=== PATIENT | female | born 1960 | race Caucasian/White ===

== ENCOUNTER 2023-02-25 09:39 | Outpatient (OUT) | payer OTHER, SELFPAY ==
--- NOTE | 2023-02-25 10:12 | MM_ITS ---
Patient Name: PREETHI TRIANA MR#: [id number] : 1960 Exam Date: 02/25/2023 Ordering Doctor: DR JA BERNSTEIN . RADIOLOGY REPORT PROCEDURE: MM TOMOSYNTHESIS SCREENING BI COMPARISON: MG MAMM SCREEN 3D PRISCILLA CAD, 12/24/2021. MG MAMM SCREEN 3D PRISCILLA CAD, 12/23/2020. MG MAMM SCREEN PRISCILLA W CAD, 12/20/2019. MG MAMM PRISCILLA SCRN W CAD DIG, 12/02/2005. INDICATIONS: screening Calculator Name NCI Breast Cancer Risk Assessment Tool 5 Year Breast Cancer Risk 1.70% Lifetime Breast Cancer Risk 7.10% Personal Breast Cancer No Personal Ovarian Cancer No Treatments Thyroidectomy Family Cancers Mother with ovarian cancer at age 47. LOCATION: [facility] BREAST COMPOSITION: Heterogeneously dense,which may obscure small masses. FINDINGS: DIAGNOSTIC CATEGORY 2--BENIGN FINDING: RIGHT BREAST: No significant suspicious finding. No significant change has occurred. LEFT BREAST: No significant suspicious finding. Scattered benign-appearing lymph nodes are present. No significant change has occurred. RECOMMENDATIONS: ROUTINE MAMMOGRAM AND CLINICAL EVALUATION IN 12 MONTHS. PLEASE NOTE: A NORMAL MAMMOGRAM DOES NOT EXCLUDE THE POSSIBILITY OF BREAST CANCER. A CLINICALLY SUSPICIOUS PALPABLE LUMP SHOULD BE BIOPSIED. Dictated by: Aung Michaud M.D. on 02/25/2023 at 12:22 Approved by: Aung Michaud M.D. on 02/25/2023 at 12:27
== END 2023-02-25 09:40 | disposition home or self-care (01) ==
LOC: MAMMO 09:42
PROVIDERS: PCP Family Medicine; Visit Provider Family Medicine
DX: Z12.31 Encounter for screening mammogram for malignant neoplasm of breast (principal); Z80.41 Family history of malignant neoplasm of ovary
CPT/HCPCS: 77063; 77067

== ENCOUNTER 2023-08-10 21:14 | Emergency (ER) | payer OTHER, SELFPAY ==
[2023-08-10] VITALS (18 sets, daily range): BP systolic 156–180; BP diastolic 100–108; PULSE 82–112; TEMP 37; O2SAT 98–99; BMI 37.0
--- OUTSIDE RECORDS SUMMARY | 2023-08-10 21:23 | XMS_ITS | CCD ---
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 Role Phone Sonal Miguel Unavailable Kia Marie Unavailable DAY, DR PERES Primary Care Unavailable MARKER, DR MANCINI Attending Unavailable MARKER, DR MANCINI Consulting Unavailable MARKER, DR MANCINI Admitting Unavailable HEMEYER, DR PERES Consulting Unavailable HEMEYER, DR PERES Primary Care Unavailable HEMEYER, DR PERES Admitting Unavailable HEMEYER, DR PERES Attending Unavailable WHITTAKER, DR MICHAEL Chong Consulting Unavailable None, Physician Primary Care Provider KLEVER Allred Attending Provider Rene Allred Attending Unavailable None Primary Care Unavailable Castro Bernstein MD Primary Care Provider DO Rolf Redding Attending Provider Rolf Redding Admitting Unavailable Rolf Redding Attending Unavailable CASTRO BERNSTEIN Attending Unavailable CASTRO BERNSTEIN Attending Unavailable ROLF REDDING Attending Unavailable CASTRO BERNSTEIN Referring Unavailable ROLF REDDING Attending Unavailable Allergies Allergy Classification Reported Allergen(s) Allergy Type Date of Onset Reaction(s) Facility (6 sources) Sulfamethoxazole / Trimethoprim Drug Allergy 10-06-19 17 Unknown [employer] Other (7 sources) Vancomycin Drug Allergy 10-06-19 17 hives [employer] Other (1 source) Sulfamethoxazole / Trimethoprim Drug Allergy 10-02-19 22 [facility] Repository (1 source) Sulfonamides (Antibiotic) Drug allergy (disorder) 01-04-20 15 [facility] (1 source) Vancomycin Drug Allergy 01-04-20 15 [facility] (3 sources) buPROPion Drug Allergy 07-24-19 22 [facility] (3 sources) FLUoxetine Drug Allergy 07-24-19 22 [facility] (4 sources) Latex Allergy to substance 05-17-19 21 Redness of Skin,rash itching [facility] (3 sources) Sulfonamides (Antibiotic) Drug Allergy 07-24-19 22 [facility] (3 sources) traMADol Drug Allergy 07-24-19 22 [facility] (3 sources) venlafaxine Drug Allergy 07-24-19 22 [facility] (3 sources) Wound Dressing Adhesive Drug Allergy 10-06-19 17 Rash [facility] (1 source) Sulfamethoxazole Drug Allergy 04-13-19 23 Itching, bad stomach pain [facility] (1 source) Trimethoprim Drug Allergy 04-13-19 23 Itching, bad stomach pain [facility] (1 source) bandaids Allergy to substance 05-17-19 21 Itching, redness of skin [facility] Medications Current Medications Medication Drug Class(es) Dates Sig (Normalized) Sig (Original) [id number] 200 actuat albuterol 0.09 mg/actuat metered dose inhaler (1 source) beta2-Adrenergic Agonist Start: 04-13-2022 take 2 puff(s) by inhalation four times daily as needed Albuterol Sulfate HFA 108 (90 Base) MCG/ACT 2 puffs Inhalation 4 times a day prn Apr, Active amoxicillin 875 mg / clavulanate 125 mg oral tablet (1 source) Penicillin-class Antibacterial Start: 04-13-2022 take 1 tablet by mouth every twelve hours Amoxicillin-Pot Clavulanate 875-125 MG 1 tablet Orally every 12 hrs for 10 day(s) Apr, Active azelastine hydrochloride 0.137 mg/actuat metered dose nasal spray (3 sources) Histamine-1 Receptor Antagonist Start: 02-24-2023 End: 08-23-2023 take 1 spray(s) nasal route in the morning azelastine (Astelin) 0.1 % nasal spray Indications: Non-seasonal allergic rhinitis, unspecified trigger Administer 1 spray into each nostril in the morning and 1 spray before bedtime. Use in each nostril as directed. 90 mL 1 02/24/2023 08/23/2023 Active benzonatate 100 mg oral capsule (1 source) Non-narcotic Antitussive Start: 04-13-2022 take 1 capsule by mouth every eight hours Tessalon Perles 100 MG 1 capsule as needed Orally Three times a day for 10 day(s) Apr, Active cholecalciferol 0.05 mg oral tablet (1 source) Vitamin D Start: 05-16-2020 take 1 tablet by mouth every week Cholecalciferol (Vitamin D3) (Vitamin D3) 50 mcg (2,000 unit) Tablet Active 1250 MCG PO every week May 16, 2020 12:00am ergocalciferol 1.25 mg oral capsule (3 sources) Provitamin D2 Compound Start: 12-22-2022 take 1 capsule by mouth every other week Vitamin D, Ergocalciferol, 32878 units capsule TAKE ONE CAPSULE BY MOUTH EVERY OTHER WEEK 0 12/22/2022 Active hydrOXYzine hydrochloride 10 mg oral tablet (3 sources) Antihistamine Start: 10-23-2022 take 1-2 tablets by mouth every eight hours at bedtime as needed hydrOXYzine HCl (Atarax) 10 MG tablet TAKE 1 TO 2 TABLETS BY MOUTH AT BEDTIME NEEDED FOR ITCHING, can TAKE EVERY 8 HOURS, FOR 30 DAYS 0 10/23/2022 Active levoFLOXacin 750 mg oral tablet (1 source) Quinolone Antimicrobial Start: 04-08-2023 End: 04-18-2023 take 1 tablet by mouth in the morning levoFLOXacin (Levaquin) 750 MG tablet Indications: Pneumonia of left lower lobe due to infectious organism Take 1 tablet (750 mg) by mouth in the morning for 10 days. 10 tablet 0 04/08/2023 04/18/2023 Active levothyroxine sodium 0.2 mg oral capsule (12 sources) l-Thyroxine Start: 11-07-2021 take 1 capsule by mouth in the morning levothyroxine (Tirosint) 200 MCG capsule Take 200 mcg by mouth in the morning. Take on an empty stomach.. 0 11/07/2021 Active Start: 05-16-2020 take 300 ug by mouth once daily in the morning Levothyroxine Active 300 MCG PO Every morning May 16, 2020 12:00am Start: 02-02-2018 End: 05-16-2020 take 200 ug by mouth once daily Levothyroxine Disconti nued 200 MCG PO Daily February 02, 2018 1:00am May 16, 2020 7:11am Start: 02-02-2018 End: 05-16-2020 take 50 ug by mouth once daily Levothyroxine Discontin ued 50 MCG PO Daily February 02, 2018 1:00am May 16, 2020 7:11am take 1 tablet by jay th once daily in the morning Levothyroxine Sodium 300 MCG 1 tablet in the morning on an empty stomach Orally Once a day Active loratadine 10 mg oral tablet (7 sources) Start: 10-25-2020 take 10 mg by mouth once daily in the morning Loratadine Active 10 MG PO Every morning October 25, 2020 12:00am midodrine hydrochloride 10 mg oral tablet (4 sources) alpha-Adrenergi c Agonist Start: 02-24-2023 End: 08-23-2023 take 1 tablet by mouth in the morning midodrine (Proamatine) 10 MG tablet Indications: POTS (postural orthostatic tachycardia syndrome) Take 1 tablet (10 mg) by mouth in the morning and 1 tablet (10 mg) before bedtime. 180 tablet 1 02/24/2023 08/23/2023 Active take 1 tablet by jay th every twelve hours Midodrine HCl 10 MG 1 tablet Orally Twic e a day Active Multivitamin preparation (1 source) Start: 02-02-2018 take 1 tablet by mouth once daily Multivitamin Active 1 TAB PO Daily February 02, 2018 1:00am ofloxacin 3 mg/ml ophthalmic solution (1 source) Quinolone Antimicrobial Start: 12-21-2020 take 1 drop(s) into the eye(s) four times daily Ofloxacin 0.3 % 1 drop into affected eye Ophthalmic Four times a day for 7 day(s) Nov, Active omeprazole 20 mg delayed release oral tablet (7 sources) Proton Pump Inhibitor Start: 10-25-2020 take 20 mg by mouth once daily in the morning Omeprazole Active 20 MG PO Every morning October 25, 2020 12:00am take 1 capsule by mouth once agnieszka ly Omeprazole 20 MG 1 capsule 30 minutes before morning meal Orally Once a day Active predniSONE 20 mg oral tablet (1 source) Start: 04-13-2022 take 1 tablet by mouth every twelve hours predniSONE 20 MG 1 tablet Orally 2 times a day for 5 day(s) Apr, Active Sodium Chloride (1 source) Start: 04-08-2023 End: 04-18-2023 sodium chloride 3% nebulizer solution Indications: Pneumonia of left lower lobe due to infectious organism Take 3 mL by nebulization 4 (four) times a day as needed for cough for up to 10 days 150 mL 0 04/08/2023 04/18/2023 Active valACYclovir 500 mg oral tablet (4 sources) Herpesvirus Nucleoside Analog DNA Polymerase Inhibitor, Herpes Simplex Virus Nucleoside Analog DNA Polymerase Inhibitor, Herpes Zoster Virus Nucleoside Analog DNA Polymerase Inhibitor Start: 02-02-2018 End: 08-23-2023 take 1 tablet by mouth in the morning valACYclovir (Valtrex) 500 MG tablet Indications: Herpetic vulvovaginitis Take 1 tablet (500 mg) by mouth in the morning. 90 tablet 1 02/24/2023 08/23/2023 Active Valcyclovir-500 mg (3 sources) Valcyclovir-500 mg Active Vitamin D3 (3 sources) Vitamin D3 Activ e Completed/Discontinued Medications Medication Drug Class(es) Dates Sig (Normalized) Sig (Original) ferrous sulfate 325 mg oral tablet (1 source) Start: 02-02-2018 End: 05-16-2020 take 1 tablet by mouth once daily Ferrous Sulfate (Iron (Ferrous Sulfate)) 325 mg (65 mg iron) Tablet Discontinued 325 MG PO Daily February 02, 2018 1:00am May 16, 2020 7:10am fexofenadine hydrochloride 180 mg oral tablet (1 source) Histamine-1 Receptor Antagonist Start: 02-02-2018 End: 10-25-2020 take 1 tablet by mouth once daily Fexofenadine (Alejandra Allergy) 180 mg Tablet Discontinued 180 MG PO Daily February 02, 2018 1:00am October 25, 2020 2:19pm traMADol hydrochloride 50 mg oral tablet (1 source) Opioid Agonist Start: 02-07-2018 End: 05-16-2020 take 0.5-1 tablets by mouth every six hours as needed for pain Tramadol (Ultram) 50 mg tablet Discontinued 50 MG PO Q6H 45 7 February 07, 2018 1:00am May 16, 2020 7:12am 1/2 - 1 tab po q 6 hours prn pain Wrist Splint/Right XL - (2 sources) Start: 05-18-2021 Wrist Splint/Right XL - as directed right wrist sprain Apr, Not-Taking Start: 05-18-2021 Wrist Splint/R ight XL - as directed right wrist sprain Apr, Active Problems Active Problems Problem Classification Problem Date Documented Date Episodic/Chronic Chronic obstructive pulmonary disease and bronchiectasis (1 source) Bronchitis, not specified as acute or chronic Episodic Complications of surgical procedures or medical care (4 sources) Postprocedural hypothyroidism; Translations: [Postoperative hypothyroidism] Onset: 12-03-2014 12-21-2022 Chronic Diverticulosis and diverticulitis (3 sources) Diverticulosis of colon; Translations: [Diverticulosis of large intestine without perforation or abscess without bleeding] Onset: 06-25-2021 12-21-2022 Chronic Malaise and fatigue (3 sources) Chronic fatigue syndrome; Translations: [Chronic fatigue syndrome] Onset: 11-12-2017 12-21-2022 Chronic Nutritional deficiencies (3 sources) Vitamin D deficiency; Translations: [Vitamin D deficiency, unspecified] Onset: 02-27-2020 12-21-2022 Chronic Other aftercare (1 source) 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; Translations: [OTH OFFICE PROFESSIONALS CURRENT DRUG THERAPY] Onset: 10-03-2021 Episodic Other connective tissue disease (1 source) Fibromyalgia; Translations: [FIBROMYALGIA] Onset: 10-03-2021 Episodic Other nutritional; endocrine; and metabolic disorders (4 sources) Morbid obesity; Translations: [Morbid (severe) obesity due to excess calories] Onset: 04-15-2015 12-21-2022 Chronic Other nutritional; endocrine; and metabolic disorders (1 source) Body mass index 30+ - obesity; Translations: [Body mass index (BMI) 36.0-36.9, adult] 04-08-2023 Chronic Other screening for suspected conditions (not mental disorders or infectious disease) (4 sources) Encounter for screening mammogram for malignant neoplasm of breast; Translations: [ENC SCR MAMMO MALIG NEOPLASM BREAST] Onset: 12-24-2021 Episodic Other upper respiratory infections (1 source) Acute sinusitis, unspecified Episodic Pneumonia (except that caused by tuberculosis or sexually transmitted disease) (1 source) Infective pneumonia; Translations: [Pneumonia, unspecified organism] 04-08-2023 Episodic Residual codes; unclassified (1 source) Sleep apnea, unspecified; Translations: [SLEEP APNEA UNSPECIFIED] Onset: 10-03-2021 Chronic Residual codes; unclassified (3 sources) Obstructive sleep apnea syndrome; Translations: [Obstructive sleep apnea (adult) (pediatric)] Onset: 12-03-2014 12-21-2022 Chronic Residual codes; unclassified (1 source) Family history of malignant neoplasm of ovary; Translations: [FAM HX MALIGNANT NEOPLASM OVARY] Onset: 12-28-2021 Episodic Residual codes; unclassified (1 source) Acquired absence of both cervix and uterus; Translations: [ACQUIRED ABSENCE BOTH CERVIX AND UTERUS] Onset: 10-03-2021 Episodic Residual codes; unclassified (1 source) Acquired absence of other genital organ(s); Translations: [ACQUIRED ABSENCE OTH GENITAL ORGANS] Onset: 10-03-2021 Episodic Residual codes; unclassified (1 source) Acquired absence of ovaries, bilateral; Translations: [ACQUIRED ABSENCE OVARIES BILATERAL] Onset: 10-03-2021 Episodic Residual codes; unclassified (1 source) Pain, unspecified Episodic Varicose veins of lower extremity (11 sources) Pain co-occurrent and due to varicose veins of bilateral legs; Translations: [Varicose veins of bilateral lower extremities with pain] Onset: 04-06-2017 Episodic Viral infection (3 sources) Herpetic vulvovaginitis; Translations: [Herpesviral vulvovaginitis] Onset: 08-02-2015 12-21-2022 Chronic Past or Other Problems Problem Classification Problem Date Documented Date Episodic/Chronic Inflammation; infection of eye (except that caused by tuberculosis or sexually transmitteddisease) (1 source) Unspecified acute conjunctivitis, left eye Onset: 12-21-2020 Resolved: 12-21-2020 Episodic Other connective tissue disease (1 source) Pain in left hand Onset: 05-18-2021 Resolved: 05-18-2021 Episodic Other diseases of veins and lymphatics (6 sources) Peripheral venous insufficiency; Translations: [Venous insufficiency (chronic) (peripheral)] Onset: 12-28-2019 12-21-2022 Episodic Other diseases of veins and lymphatics (3 sources) Venous stasis; Translations: [Other specified disorders of veins] Onset: 12-14-2014 12-21-2022 Episodic Other non-traumatic joint disorders (1 source) Pain in right wrist Onset: 05-18-2021 Resolved: 05-18-2021 Episodic Sprains and strains (2 sources) Unspecified sprain of right wrist, initial encounter; Translations: [Sprain of unspecified part of left wrist and hand, initial encounter] Onset: 05-18-2021 Resolved: 05-18-2021 Episodic Thyroid disorders (3 sources) Sick-euthyroid syndrome; Translations: [Sick-euthyroid syndrome] Onset: 12-14-2014 12-21-2022 Episodic Results Test Name Value Interpretation Reference Range Facility [facility] 06-24-2023 L Specimen: [id number] Received: 06/24/23 Status: REY Marte Num: [id number] Spec Type: Surgical Subm Dr: Rolf Redding DO Tissues: A Gastric Biopsy (GASTRIC ANTRUM) Procedures: HE/2, Gross/Micro L4 Age/ Patient Sex Location Account Attending Physician Preethi Gilliam 62/F ОЛЬГА [id number] Rolf Redding DO SPEC NUM: [id number] RECD: 06/24/23 STATUS: REY MARTE NUM: [id number] JESSIE: 06/24/23- SUBM DR: Rolf Redding DO ENTERED: 06/24/[address] [facility] [address]: Antonio [facility] [place] SPEC TYPE: Surgical DEPT: S ORDERED: HE/2, Gross/Micro L4 ORDERED: HE/2, Gross/Micro L4 Pathological Diagnosis Gastric antrum biopsy: -Antral mucosa with moderate chronic reactive and/or congestive gastropathy, including mildly associated peptic congestions in 2 fragments, otherwise without acute inflammation, active erosion, glandular dysplasia, or significant stromal chronic inflammation observed -Also no other specific features of Helicobacter infection per routine H E morphological assessment Gross Description Received in formalin labeled with the patient's name and gastric antrum BX are 3 montelongo mucosal tissue fragments measuring 0.3 x 0.2 x 0.1 cm to 0.2 x 0.1 x 0.1 cm, entirely submitted in A1. Clinical history: Heartburn, anemia, change in bowel habit TW CPT Codes 44124 Specimen: [id number] Received: 06/24/23 Status: REY Estuardo Num: [id number] Spec Type: Surgical Subm Dr: Rolf Redding DO Tissues: A Gastric Biopsy (GASTRIC ANTRUM) Procedures: Nadir MURDOCK/Mansi L4 Patient: Preethi Gilliam [id number] (Continued) Signed (signature on file) Zora Sal MD 06/26/23 0229 Normal [facility] Quick Fluon 04-13-2022 FLUAV Ab CF (S) [Titer] Negative [employer] Other Quick Flu [employer] Other MG MAMM SCREEN 3D PRISCILLA CADon 12-24-2021 MG MAMM SCREEN 3D PRISCILLA CAD Patient: PREETHI GILLIAM Exam Date: 12/24/2021 : 1960 Gender:F Ordering : DR CASTRO BERNSTEIN . Admission #: [id number] Family : Order #: [id number] CLICK HERE TO VIEW EXAM RADIOLOGY REPORT PROCEDURE: MAMMOGRAM SCREENING 3D BILATERAL CAD COMPARISON: MG MAMM SCREEN PRISCILLA W CAD, 12/20/2019. MG MAMM SCREEN 3D PRISCILLA CAD, 12/23/2020. INDICATIONS: Screening mammography Calculator Name NCI Breast Cancer Risk Assessment Tool 5 Year Breast Cancer Risk 1.30% Lifetime Breast Cancer Risk 5.90% Personal Breast Cancer No Personal Ovarian Cancer No Treatments Thyroidectomy Family Cancers Mother with ovarian cancer at age 47. LOCATION: [facility] BREAST COMPOSITION: Heterogeneously dense,which may obscure small masses. FINDINGS: DIAGNOSTIC CATEGORY 2--BENIGN FINDING. NO CHANGE FROM COMPARISON. Scattered benign-appearing nodules are present. Scattered benign-appearing calcifications are present. Scattered benign-appearing lymph nodes are present. RIGHT BREAST: No significant suspicious finding. LEFT BREAST: No significant suspicious finding. RECOMMENDATIONS: ROUTINE MAMMOGRAM AND CLINICAL EVALUATION IN 12 MONTHS. PLEASE NOTE: A NORMAL MAMMOGRAM DOES NOT EXCLUDE THE POSSIBILITY OF BREAST CANCER. A CLINICALLY SUSPICIOUS PALPABLE LUMP SHOULD BE BIOPSIED. Dictated by: Michael Messer MD on 12/24/2021 at 08:05 Approved by: Michael Messer MD on 12/24/2021 at 08:06 Normal [facility] XR wrist RT min 3V*on 2021 XR wrist RT min 3V* [facility] [employer] Other XR wrist RT min 3V* [facility] [place] [employer] Other XR wrist RT min 3V* [address] [place] [address] [employer] Other XR wrist RT min 3V* [place] [address] [employer] Other XR wrist RT min 3V* XRay Report [employer] Other XR wrist RT min 3V* Signed [employer] Other XR wrist RT min 3V* Patient: Preethi Gilliam MR#: [id number] [employer] Other XR wrist RT min 3V* 9 [employer] Other XR wrist RT min 3V* : 1960 Acct:[id number] [employer] Other XR wrist RT min 3V* Age/Sex: 60 / F ADM Date: 05/18/21 [employer] Other XR wrist RT min 3V* Loc: [facility] Room: Type: [facility] [employer] Other XR wrist RT min 3V* Attending Dr: Kia LOPEZ [employer] Other XR wrist RT min 3V* Ordering Provider: JESSICA Campbell [employer] Other XR wrist RT min 3V* Date of Service: 05/18/21 [employer] Other XR wrist RT min 3V* XR/XR wrist RT min 3V*: PAIN AFTER FALL [employer] Other XR wrist RT min 3V* ([id number]) XR/XR hand LT min 3V*: PAIN AFTER FALL [employer] Other XR wrist RT min 3V* Copies to: JESSICA Campbell [employer] Other XR wrist RT min 3V* XR hand LT min 3V*, XR wrist RT min 3V* 05/18/2021 11:56 AM [employer] Other XR wrist RT min 3V* SIGNS AND SYMPTOMS: Fall with pain over the right wrist which is greatest over the ulnar aspect and [employer] Other XR wrist RT min 3V* within the left hand greatest along the fourth and fifth metacarpals. [employer] Other XR wrist RT min 3V* PROTOCOL: Frontal, lateral, and oblique radial graphs of the left hand and right wrist [employer] Other XR wrist RT min 3V* COMPARISON: None [employer] Other XR wrist RT min 3V* FINDINGS: [employer] Other XR wrist RT min 3V* Left hand: [employer] Other XR wrist RT min 3V* There is no evidence of fracture or dislocation. Significant degenerative changes are noted in the [employer] Other XR wrist RT min 3V* distal interphalangeal joint of the fifth digit. There is mild narrowing of the first [employer] Other XR wrist RT min 3V* metacarpophalangeal junction. The joint spaces are preserved otherwise. No significant soft tissue [employer] Other XR wrist RT min 3V* swelling. [employer] Other XR wrist RT min 3V* Right wrist: [employer] Other XR wrist RT min 3V* The radiocarpal joint and carpal rows are preserved. There is mild soft tissue swelling over the [employer] Other XR wrist RT min 3V* dorsum of the wrist. There is no evidence of acute displaced fracture. No dislocation or [employer] Other XR wrist RT min 3V* subluxation. [employer] Other XR wrist RT min 3V* XR/XR hand LT min 3V* [employer] Other XR wrist RT min 3V* IMPRESSION: [employer] Other XR wrist RT min 3V* No evidence of acute displaced fracture. [employer] Other XR wrist RT min 3V* Degenerative changes are noted, greatest in the fifth distal interphalangeal joints. [employer] Other XR wrist RT min 3V* No acute displaced fracture. No subluxation or dislocation. [employer] Other XR wrist RT min 3V* There is soft tissue swelling over the dorsum of the right wrist. [employer] Other XR wrist RT min 3V* Impression dictated by: Earnest King M.D.05/18/2021 11:58 AM [employer] Other XR wrist RT min 3V* Dictation Location: [place] [address] [employer] Other XR wrist RT min 3V* Transcribed By: JILL 05/18/21 [facility] [employer] Other XR wrist RT min 3V* Dictated By: Earnest King II, MD 05/18/21 [facility] [employer] Other XR wrist RT min 3V* Signed By: [employer] Other XR wrist RT min 3V* 05/18/21 [facility] [employer] Other FREE T4on 07-20-2019 Free T4 [Mass/Vol] 0.76 ng/dL Normal 0.61-1.60 [facility] Comment on above: Result Comment: Perf ormed at [facility] [address] [address] Performed By: #### 1 9403, 11064, 16453 #### [facility] Unless Otherwise Noted [address] [address] / COLA #[id number]/CLIA # [id number] THYROGLOBULIN QUANTITATIVE A ND ANTIBODYon 07-20-2019 ANTI-THYROGLOBULIN AB <1 Normal <4.0 [facility] Comment on above: Result Comment: [facility] ormed at [facility] [facility] [address] Performed By: #### 1 9863, 93755, 50792 #### [facility] Unless Otherwise Noted [address] [address] / COLA #4724/CLIA # [id number] THYROGLOBULIN <0.1 Normal 0-35 End[facility] Comment on above: Result Comment: Quantitation of Thyroglobulin may be unreliable due to the presence of Anti-Thyroglobulin antibodies. The results cannot be interpreted as absolute evidence for the presence or absence of malignant disease. Pathology [employer] [address] [place] [address] CLIA No. [id number] CAP Accreditation No. [id number] Computerized Table Cutter: Reg Oliver M.D. Performed By: #### 1 3896, 03904, 59353 #### [facility] Unless Otherwise Noted [address] [address] / COLA #4724/CLIA # [id number] TSHon 07-20-2019 TSH Qn 35.00 uIU/mL High 0.49-4.67 [facility] Comment on above: Result Comment: Perf ormed at [facility] [facility] [address] Performed By: #### 1 2940, 02680, 38437 #### [facility] Unless Otherwise Noted [address] [address] / COLA #4724/CLIA # [id number] Vital Signs Date Time Vital Sign Value Performing Clinician Facility 04-08-2023 10:20-0500 Body height 172.7 cm Castro Bernstein MD Work Phone: [facility] 04-08-2023 10:20-0500 Body mass index (BMI) [Ratio] 36.19 kg/m2 Castro Bernstein MD Work Phone: [facility] [place] 04-08-2023 10:20-0500 Body weight 107.96 kg Castro Bernstein MD Work Phone: [facility] 04-13-2022 10:35-0500 Body height 172.72 cm Kia Cynthia Other [employer] Other 04-13-2022 10:35-0500 Body mass index (BMI) [Ratio] 34.82 kg/m2 Kia Cynthia Other [employer] Other 04-13-2022 10:35-0500 Body temperature 97.8 [degF] Kia Cynthia Other [employer] Other 04-13-2022 10:35-0500 Body weight 103.87 kg Kia Cynthia Other [employer] Other 04-13-2022 10:35-0500 Diastolic blood pressure 63 mm[Hg] Kia Cynthia Other [employer] Other 04-13-2022 10:35-0500 Respiratory rate 18 /min Kia Cynthia Other [employer] Other 04-13-2022 10:35-0500 SaO2% (BldA) [Mass fraction] 96 % Kia Cynthai Other [employer] Other 04-13-2022 10:35-0500 Systolic blood pressure 99 mm[Hg] Ika Cynthia Other [employer] Other 05-18-2021 12:20-0400 Body height 172.72 cm Kia Cynthia Other [employer] Other 05-18-2021 12:20-0400 Body mass index (BMI) [Ratio] 34.75 kg/m2 Kia Marie Other [employer] Other 05-18-2021 12:20-0400 Body temperature 98.1 [degF] Kia Crenshawmond Other [employer] Other 05-18-2021 12:20-0400 Body weight 103.69 kg Kia Marie Other [employer] Other 05-18-2021 12:20-0400 Diastolic blood pressure 79 mm[Hg] Kia Marie Other [employer] Other 05-18-2021 12:20-0400 Respiratory rate 18 /min Kia Marie Other [employer] Other 05-18-2021 12:20-0400 SaO2% (BldA) [Mass fraction] 99 % Kia Marie Other [employer] Other 05-18-2021 12:20-0400 Systolic blood pressure 133 mm[Hg] Kia Crenshawmond Other [employer] Other 12-21-2020 12:40-0400 Body height 172.72 cm Sonal Ginty Other [employer] Other 12-21-2020 12:40-0400 Body mass index (BMI) [Ratio] 34.75 kg/m2 Sonal Ginty Other [employer] Other 12-21-2020 12:40-0400 Body temperature 97.7 [degF] Sonal Ginty Other [employer] Other 12-21-2020 12:40-0400 Body weight 103.69 kg Sonal Ginty Other [employer] Other 12-21-2020 12:40-0400 Diastolic blood pressure 76 mm[Hg] Sonal Ginty Other [employer] Other 12-21-2020 12:40-0400 Respiratory rate 18 /min Sonal Ginty Other [employer] Other 12-21-2020 12:40-0400 SaO2% (BldA) [Mass fraction] 98 % Sonal Ginty Other [employer] Other 12-21-2020 12:40-0400 Systolic blood pressure 118 mm[Hg] Sonal Ginty Other [employer] Other Encounters Encounter Date Encounter Type Care Provider Facility Start: 07-06-2023 End: 07-06-2023 ambulatory ROLF REDDING Not Available Start: 06-24-2023 End: 06-24-2023 ambulatory Rolf Redding [facility] Work Phone: Start: 06-24-2023 End: 06-24-2023 Departed Referred DO Rolf Redding Work Phone: [facility] [place] Work Phone: Start: 06-10-2023 End: 06-10-2023 ambulatory ROLF REDDING Not Available Start: 04-08-2023 Bamboo flowsheet Castro cisneros MD Work Phone: [facility] Start: 04-08-2023 Bamboo flowsheet Castro cisneros MD Work Phone: [facility] Start: 04-08-2023 End: 04-08-2023 ambulatory CASTRO BERNSTEIN Not Available Start: 04-08-2023 End: 04-08-2023 Office outpatient visit 15 minutes Castro Bernstein MD Work Phone: [facility] Comment on above: Pneumonia of left lo wer lobe due to infectious organism; Morbid obesity (CMS/HCC); BMI 36.0-36.9,adult Start: 04-07-2023 Chart abstracting Castro phillips MD Work Phone: [facility] Start: 02-24-2023 End: 02-24-2023 ambulatory CASTRO BERNSTEIN Not Available Start: 10-12-2022 End: 10-12-2022 ambulatory Rene Allred Facility:[facility] Start: 10-12-2022 End: 10-12-2022 ambulatory Physician None Work Phone: [facility] Work Phone: Start: 04-13-2022 End: 04-13-2022 ambulatory Kia Marie Other [employer] Other Start: 04-13-2022 Office outpatient vi sit 15 minutes Kia Cynthia [facility] Start: 12-24-2021 End: 12-25-[address] CASTRO BERNSTEIN Facility:[facility] Start: 10-02-2021 End: 10-02-[address] CASTRO BERNSTEIN Facility:[facility] Start: 05-18-2021 End: 05-18-2021 ambulatory Kianikita Marie Other [employer] Other Start: 05-18-2021 Office outpatient vi sit 15 minutes Kia Cynthia [facility] Start: 12-21-2020 End: 12-21-2020 ambulatory Sonal Ginty Other [employer] Other Start: 12-21-2020 Office outpatient vi sit 15 minutes Sonal Ginty [facility] Procedures Date Procedure Procedure Detail Performing Clinician Start: 02-25-2023 Mammography Castro phillips MD Work Phone: Start: 01-07-2015 Colonoscopy Castro phillips MD Work Phone: Plan of Treatment Date Care Activity Detail Author Start: 01-07-2025 Screening for malignant neoplasm of colon [facility] Start: 02-26-2024 Screening for malign ant neoplasm of breast Mammogram [facility] Start: 04-08-2023 End: 04-08-2023 Patient encounter procedure [facility] Comment on above: Arrived Start: 1960 Screening for malignant neoplasm of colon [facility] Immunizations Immunization Date Immunization Notes Care Provider Fa [facility] 12-03-2022 Influenza, injectabl e, Madin [place] Canine Kidney, preservative free, quadrivalent Castro Bernstein MD Work Phone: [facility] 11-24-2021 Influenza, injectabl e, Madin [place] Canine Kidney, preservative free, quadrivalent Castro Bernstein MD Work Phone: [facility] 2020 influenza, injectabl e, quadrivalent, preservative free Castro Bernstein MD Work Phone: [facility] 06-20-2020 COVID-19 mRNA-1273 (Moderna) DO Rolf Redding Work Phone: [facility] 05-23-2020 COVID-19 mRNA-1273 (Moderna) [facility] Work Phone: [facility] 11-15-2019 Influenza, injectabl e, Madin [place] Canine Kidney, preservative free, quadrivalent Castro Bernstein MD Work Phone: [facility] 12-03-2006 hepatitis B vaccine, adult dosage Castro Bernstein MD Work Phone: [facility] 07-30-2006 hepatitis B vaccine, adult dosage Castro Bernstein MD Work Phone: [facility] 06-01-2006 hepatitis B vaccine, adult dosage Castro Bernstein MD Work Phone: [facility] Payers Date Payer Category Payer Unknown [id number] 2022 Private Health Insurance [facility] [id number] 2022-Present [address] [address] [place] [address] [id number] 2022 Private Health Insurance [id number] 1960 Unknown [id number] 1959 Unknown [id number] 1959 Unknown [id number] [id number] 1959 Unknown [id number] [id number] 1959 Unknown [id number] [id number] 1959 Unknown [id number] 1960 Private Health Insurance [id number] Private Health Insurance [id number] Self-pay Unknown [facility] [id number] Unknown [id number] Social History Date Type Detail Facility Start: 02-24-2023 End: 04-08-2023 Sex Assigned At [facility] Other Start: 1960 Sex Assigned At Female [facility] Start: 10-31-2020 End: 02-23-2023 Tobacco smoking status NHIS Never smoked tobacco [facility] Start: 02-23-2023 Tobacco use and exposure Smokeless tobacco non-user [facility] Start: 04-07-2023 End: 04-08-2023 Alcohol intake Ex-drinker (finding) [facility] Start: 02-24-2023 End: 04-08-2023 History of Social function [facility] Start: 04-07-2023 Alcohol Comment Caffeine intak e : 2-3 cups pr day [facility] Start: 1960 Sex Assigned At Not on file [facility] Start: 05-13-2022 Gender identity Identifies as female gender (finding) [facility] History of Present illness Narrative 04-08-2023 Castro Bernstein MD - 04/08/2023 10:30 AM EST Note Date & Type Note Facility 04-08-2023 History of Presen t illness Narrative Patient ID: Preethi Gilliam is a 62 y.o. female who presents for: Upper Respiratory Infection Patient complains of symptoms of a URI. Symptoms include congestion, facial pain, nasal congestion, and non productive cough. Onset of symptoms was 7 days ago, and has been gradually worsening since that time. Treatment to date: none. Review of Systems Constitutional: Negative for chills and fever. HENT: Positive for congestion, sinus pressure and sinus pain. Negative for ear pain and sore throat. Respiratory: Positive for cough. Negative for shortness of breath and wheezing. Neurological: Positive for headaches. Negative for light-headedness. Objective In general the patient is pleasant and in no acute distress. Bilateral ears, canals are within normal limits. TMs are transparent and somewhat retracted. No fluid layer. Bilateral nares demonstrate inflamed mucosa. Oropharynx has moist mucosa there is no specific evidence of thrush. There is mild erythema of the pharynx. Shoddy bilateral anterior cervical adenopathy. No signs of respiratory distress. Patient is speaking full sentences. There are asymmetrical breath sounds With a decrease in the left lower lung field. No rhonchi or rales are appreciated. No wheezes. Decreased percussion note in the left lower lung field Skin is warm and dry Visit Vitals Ht 5' 8 Wt 238 lb BMI 36.19 kg/m OB Status Hysterectomy Smoking Status Never BSA 2.28 m Allergies Allergen Reactions Sulfamethoxazole-Trimethoprim Other Reaction(s): GI Disturbance, Unknown Vancomycin Other Reaction(s): Other (See Comments), Red Women Syndrome RED MAN SYNDROME Bupropion Other Reaction(s): anger Wound Dressing Adhesive Rash Fluoxetine Other Reaction(s): felt bug eyed Latex Other Reaction(s): Unknown Sulfa Antibiotics Other Reaction(s): Unknown Tramadol Other Reaction(s): anaphylaxis Venlafaxine Other Reaction(s): nausea Current Outpatient Medications Medication Instructions azelastine (Astelin) 0.1 % nasal spray 1 spray, Each Nostril, 2 times daily, Use in each nostril as directed hydrOXYzine HCl (Atarax) 10 MG tablet TAKE 1 TO 2 TABLETS BY MOUTH AT BEDTIME NEEDED FOR ITCHING, can TAKE EVERY 8 HOURS, FOR 30 DAYS levoFLOXacin (LEVAQUIN) 750 mg, Oral, Daily levothyroxine (Synthroid, Levoxyl) 50 MCG tablet 1 tablet, Oral, Daily before breakfast, For total 250McG levothyroxine (TIROSINT) 200 mcg, Oral, Every morning, Take on an empty stomach. loratadine (CLARITIN) 10 mg, Oral, Daily RT midodrine (PROAMATINE) 10 mg, Oral, 2 times daily omeprazole OTC (PRILOSEC OTC) 20 mg, Oral, Daily before breakfast, Do not crush, chew, or split. sodium chloride 3% nebulizer solution 3 mL, Nebulization, 4 times daily PRN valACYclovir (VALTREX) 500 mg, Oral, Daily Vitamin D, Ergocalciferol, 18092 units capsule TAKE ONE CAPSULE BY MOUTH EVERY OTHER WEEK Assessment/Plan Diagnoses and all orders for this visit: Pneumonia of left lower lobe due to infectious organism - levoFLOXacin (Levaquin) 750 MG tablet; Take 1 tablet (750 mg) by mouth in the morning for 10 days. - sodium chloride 3% nebulizer solution; Take 3 mL by nebulization 4 (four) times a day as needed for cough for up to 10 days After discussion with her I do suspect she had a viral illness that started all of this but there are significant changes in the left lower lung field. We mutually agreed to trial of antibiotic therapy. She does have a nebulizer machine at home without any medications. No complaints sounding like bronchospasm and not on auscultation. We'll go ahead and use hypertonic saline to help with the irritation and hopefully loosen some secretions that she does notice occasionally trying to cough up. In prescribing a new medication consideration of the following encompasses moderate decision making: the current prescriptions and supplements, the current allergies and medication intolerances, the current medical conditions, and potential drug interactions. Drug interaction screening is reviewed and there are moderate to major severity ratings to consider during prescription drug management. If the new medication is considered a controlled substance, then the OARRS and NARX scores are obtained and reviewed. Risks, benefits, and reason for starting their medication were discussed. The patient was given a chance to ask questions today and all questions were answered. The patient is to contact us, preferably by using the patient portal, or call if any other questions arise or if any problems occur with the adjustment in their medication. Morbid obesity ([facility]) BMI 36.0-36.9,adult documented in this encounter [facility] Evaluation note 04-13-2022 Note Date & Type Note Facility 04-13-2022 Evaluation note Encounter Date Diagnosis Assessment Notes Apr, Body aches (ICD-10 - R52) Apr, Acute sinusitis, recurrence not specified, unspecified location (ICD-10 - J01.90) Sinusitis home care material was printed Drink plenty fluids, get plenty of rest. Take the amoxicillin with clavulanate and prednisone as prescribed until gone. Use the albuterol inhaler as prescribed as needed for cough or shortness of breath. Take the Tessalon Perles as prescribed as needed for cough. Off work today and tomorrow. Follow-up with your family physician if no improvement in 2 to 3 days. Go to the ER for worsening symptoms or concern Apr, Bronchitis (ICD-10 - J40) [employer] Other Evaluation note 05-18-2021 Note Date & Type Note Facility 05-18-2021 Evaluation note Encounter Date Diagnosis Assessment Notes Apr, Right wrist pain (ICD-10 - M25.531) Apr, Sprain of right wrist, initial encounter (ICD-10 - S63.501A) Wear the splint to your right wrist for comfort and compression until your symptoms improve. Wear the Sheldon wrap to your left hand for comfort and compression. Apply ice to the hand and wrist 2-3 times a day for 20 minutes at a time. Take ibuprofen, 600 mg up to 4 times a day with food as needed for pain and swelling. Follow-up with your family physician if no improvement in 4 to 5 days. Apr, Left hand pain (ICD-10 - M79.642) Apr, Sprain of left hand, initial encounter (ICD-10 - S63.92XA) [employer] Other Evaluation note 12-21-2020 Note Date & Type Note Facility 12-21-2020 Evaluation note Encounter Date Diagnosis Assessment Notes Nov, Acute bacterial conjunctivitis of left eye (ICD-10 - H10.32) Discussed diagnosis with patient. Advised to use eye drops as prescribed, discussed proper administratio n. Contagious until after 24 hours on antibiotic eye drops. Advised good hand hygiene and infection control, wash linens and bedding, do not touch eye directly with eye drop bottle, wipe off bottle after every use, do not share eye drop bottles. Apply cool compress to eye several times a day, clean eye with warm, most cloth from inner to outer canthus. Avoid eye makeup until sx resolve, discard all eye makeup that was used at time of infection. Eye symptoms should improve in 2-3 days with treatment, if no improvement follow up with PCP or UC. Immediate eval if symptoms worsen, eye pain, vision changes, redness and swelling occur around the eye, headache, fever, N/V or any other concerning symptoms. Patient verbalizes understanding and is agreeable to treatment plan [employer] Other Evaluation note Note Date & Type Note Facility [facility] Evaluation note Note Date & Type Note Facility Evaluation note Diagnosis Pneumonia of left lower lobe due to infectious organism Morbid obesity (CMS/HCC) Morbid obesity BMI 36.0-36.9,adult documented in this encounter [facility] History general Narrative - Reported Note Date & Type Note Facility History general Narrative - Reported Type Medical History VARICOSE VEINS Medical History h/o thyroid cancer Medical History h/o STP LT thigh Surgical History cholecystectomy Surgical History HYSTERECTOMY Surgical History D&C Surgical History hemorrhoidectomy Surgical History VENOUS ABLA. Surgical History thyroidectomy Surgical History mole removed 2020 Surgical History RIGHT LEG STAB PHLEBECTOMY 05/16 Hospitalization History childbirth X 4 Hospitalization History SEE ABOVE Hospitalization History pgeisert [employer] Other Summary Purpose Family History No Family History Records Found Relationship Condition Age at Onset Recorded Date/T adilia Not Specified Malignant neoplasm of ovary Unknown father Status post four ves mary coronary artery bypass Unknown Presence of cardiac pacemaker Unknown Myocardial infarction Unknown brother Myocardial infarction Unknown brother Heart disease Unknown Unknown father Unknown Heart disease Unknown Not Specified Unknown History of ovarian cancer Unknown Malignant neoplasm Unknown natural son Family history of mental disorder Unknown sister Hyperthyroidism Unknown Advance Directives No Advanced Directives Records Found Advance Directive Response Recorded Date/ Time Advance Directives No October 08, 2017 3:57pm Chief Complaint and Reason for Visit Chief Complaint CONTUSION BUTTOCKS Additional Source Comments INFORMATION SOURCE (unrecogn ized section and content) DATE CREATED AUTHOR 08/01/2019 [facility] DATE CREATED AUTHOR AUTHOR'S ORGANIZ ATION 12/28/2021 [facility] DATE CREATED AUTHOR AUTHOR'S ORGANIZ ATION 12/21/2022 [facility] DATE CREATED AUTHOR AUTHOR'S ORGANIZ ATION 06/26/2023 [facility] DATE CREATED AUTHOR AUTHOR'S ORGANIZ ATION 07/08/2023 [facility] EPIC REASON FOR VISIT (unrecogniz ed section and content) Reason Comments URI Care Teams (unrecognized sec tion and content) Team Status: Active Member Role Status Dates Physician None Primary Care Provider Active Team Status: Inactive Member Role Status Dates Physician None Primary Care Provider Active Rene Allred PA-C Attending Provider Active [employer] Relationship Specialty Start Date End Date Castro Bernstein MD [address] [place] [id number] PCP - General Family Medicine 08/04/22 [employer] Relationship Specialty Start Date End Date Castro Bernstein MD [address] [place] [address] PCP - General Family Medicine 08/04/22 Team Status: Inactive Member Role Status Dates Rolf Redding DO Attending Provider Active Start : June 24, 2023 End: June 24, 2023 Goals (unrecognized section and content) Goals may be documented in a n alternate section FOR RECORDS PERTAINING TO PATIENTS WHO ARE OR HAVE BEEN ENROLLED IN A CHEMICAL DEPENDENCY/SUBSTANCEABUSE PROGRAM, SOME INFORMATION MAY BE OMITTED. This clinical summary was aggregated from multiple sources. Caution should be exercised in using it in the provision of clinical care. This summary normalizes information from multiple sources, and as a consequence, information in this document may materially change the coding, format and clinical context of patient data. In addition, data may be omitted in some cases. CLINICAL DECISIONS SHOULD BE BASED ON THE PRIMARY CLINICAL RECORDS. [facility] [employer] [facility]. provides no warranty or guarantee of the accuracy or completeness of information in this document.
--- NOTE | 2023-08-10 22:08 | ED_ITS ---
HPI HPI - General Adult General Chief complaint: Dental/Oral Stated complaint: Dental Pain, Shoulder Pain, Chest Pain Time Seen by Provider: 08/10/23 21:53 Source: patient Mode of arrival: walk-in Limitations: no limitations History of Present Illness HPI narrative: This 62-year-old female, non-smoker, with a history of hypertension and pots disease presents for evaluation of left lower tooth pain that radiates into her left anterior chest and left shoulder area. She states she is now having tingling sensation in her left hand. She has an appointment with a dentist but has to fill out paperwork before she can see the dentist because she has not been there in a period of time. She denies any shortness of breath dizziness or diaphoresis. She has no abdominal pain. She has chronic neck pain is unchanged. She states she has never had a cardiac workup in the past. Her chest pain has been present for the past 2 days as well as her dental pain. She does not have any ear pain. She denies any fever. Related Data Allergies Allergy/AdvReac Type Severity Reaction Status Date / Time adhesive Allergy Rash Verified 08/10/23 21:33 sulfamethoxazole Allergy Rash Verified 08/10/23 21:33 [From Bactrim] tramadol [From Ultram] Allergy Confusion Verified 08/11/23 01:00 trimethoprim [From Bactrim] Allergy Rash Verified 08/10/23 21:33 vancomycin AdvReac Verified 08/10/23 21:33 Opioid HPI Opioid Management Most Recent Opioid Data: Last Pain Scale 10 08/10/23 21:48 Last ED Pain Assessment 08/10/23 21:48 Review of Systems ROS Status of ROS 10 or more systems reviewed and unremark able except as noted in history and below Exam Narrative Exam Narrative: Vital signs and Nursing Notes reviewed: Patient is afebrile with a normal pulse, blood pressure is elevated at 180/108, she is not hypoxic with pulse ox of 98% on room air General: Awake, alert, oriented, no acute distress, lying comfortably on the stretcher HEENT: Normocephalic atraumatic, mucous membranes are moist and pink, eyes are clear, normal conjunctiva, there is tenderness to the left lower tooth #23. I do not see any visible cavity in this tooth. These teeth distal to these teeth are missing with 1 markedly decayed molar in the posterior left lower jawline. There is no sign of necrotizing gingivitis or periapical abscess. Palpation/percussion of this tooth does cause the patient discomfort. Neck: Supple, no meningeal signs, no anterior or posterior cervical lymphadenopathy, no carotid bruits Chest: Lungs are clear to auscultation with good air entry, there is no wheezing rhonchi or rales appreciated no accessory muscle use, patient is speaking in complete sentences-no chest wall tenderness to palpation CVS: Regular rate and rhythm S1-S2, no murmurs rubs or gallops, pulses are brisk and equal bilaterally ABD: Soft, nondistended, nontender, no rebound guarding or rigidity, bowel sounds are normal, no pulsatile masses appreciated Extremities: Moving all extremities, no lower extremity tenderness or swelling noted, negative Homans' sign, pulses are brisk and equal bilaterally Skin: Normal in appearance without rash,pallor, petechiae or purpura Neuro: No focal deficits Constitutional Vital Signs, click to edit/add: Last Vital Signs Temp 98.6 F 08/10/23 21:26 Pulse 89 08/11/23 00:40 Resp 16 08/11/23 00:40 BP 156/100 H 08/10/23 23:24 Pulse Ox 99 08/10/23 22:52 O2 Del Method Room Air 08/10/23 21:26 Course Vital Signs Vital signs: Vital Signs Temperature 98.6 F 08/10/23 21:26 Pulse Rate 95 H 08/10/23 21:26 Respiratory Rate 20 08/10/23 21:26 Blood Pressure 180/108 H 08/10/23 21:26 Pulse Oximetry 98 08/10/23 21:26 Oxygen Delivery Method Room Air 08/10/23 21:26 Temperature 98.6 F 08/10/23 21:26 Pulse Rate 89 08/11/23 00:40 Respiratory Rate 16 08/11/23 00:40 Blood Pressure 156/100 H 08/10/23 23:24 Pulse Oximetry 99 08/10/23 22:52 Oxygen Delivery Method Room Air 08/10/23 21:26 Medical Decision Making MDM Narrative Medical decision making narrative: This 62-year-old female presents for evaluation of left-sided tooth ache. She has generally poor dentition with several missing teeth and severe dental decay in her left posterior lower molar. For the past several days she has had pain in tooth #23. She states the pain in her mouth radiates into her left chest and shoulder and now her left arm is going down. She is not a smoker. She denies alcohol use. She denies a history of diabetes but does have hyperglycemia. She has a history of pots disease and hypertension. She was noted to have an elevated blood pressure upon arrival. I ordered [place] for her for her dental pain as well as amoxicillin but the pharmacy did not approve the [place] due to a history of tramadol allergy. She was then medicated with ibuprofen and dental analgesia. She has a normal EKG at 90 bpm with a first-degree AV block and otherwise no acute findings. Routine labs were ordered. She has a normal white count and hemoglobin. Troponin is normal. Electrolytes are normal. D-dimer is elevated. The results of this were discussed with her and she is agreeable to a CTA of the chest to rule out PE or other acute findings. She does have a follow-up appointment with a dentist locally. CTA of the chest, which is included in the body of this report, is negative for acute findings. The results of the CT were discussed with her and she was given a copy of her report. She is no longer complaining of chest pain but still has some lower jaw/teeth pain. Repeat troponin is 5, essentially unchanged. I discussed her dental pain with her - she states that when she took a tramadol in the past, she was at work and all of the sudden was confused and thinks she was short of breath, she did not have any additional constitutional symptoms such as hives or anaphylaxis and would like a norco for her pain. We will give her 1/2 tab with a zofran and monitor for any untoward side effects prior to being discharged. Medical Records Medical records narrative: The [address] [address] [address] Scan Report Signed Patient: PREETHI TRIANA MR#: [id number] : 1960 Acct:[id number] Age/Sex: 62 / F ADM Date: 08/10/23 Loc: ER Attending Dr: Ordering Physician: Live Riley Date of Service: 08/10/23 Procedure(s): CT angio chest Accession Number(s): [id number] cc: JA BERNSTEIN ~ The [address] [id number] Patient Name: PREETHI TRIANA MRN: [id number] date: 1960 Sex: F Assigned Patient Location: ER Current Patient Location: ER Accession/Order Number: [id number] Exam Date: 08/10/2023 23:40 Report Date: 08/11/2023 00:18 At the request of: LIVE MARKER Procedure: CT angio chest CT angio chest 08/10/2023 10:40 PM CDT: History: CP. Elevated d dimer Chest pain. Possible pulmonary embolism. Comparison: None. Technique: IV Contrast enhanced CTA imaging of the chest. Sagittal and coronal MIP reformatted images are provided. This CT exam was performed using one or more of the following dose reduction techniques: Automated exposure control, adjustment of the mA and/or KV according to patient size, or use of iterative reconstruction technique. Findings: The central airway is midline and patent. There is bilateral dependent and bibasilar atelectasis. There is no effusion or pneumothorax. The heart size is upper normal. There is no pericardial effusion. The pulmonary arteries are patent and normal in caliber. There is no pulmonary embolism. The thoracic aorta is normal in caliber. Limited imaging through the upper abdomen reveals no acute abnormality. The bony thorax is intact without acute abnormality. 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 CT/CT angio chest Impression: No acute cardiopulmonary process. No pulmonary embolism. Lab Data Lab results reviewed: Yes I reviewed the patient's lab results Lab results narrative: Labs are normal with the exception of a D-dimer that is elevated. Patient has a normal troponin. Normal white count and hemoglobin. Electrolytes, liver function tests are all normal. Labs: Lab Results 08/10/23 08/11/23 Range/Units 22:15 00:21 WBC 9.0 (4.0-11.0) 10^3/uL RBC 4.28 (4.20-5.40) 10^6/uL Hgb 11.3 L (12.0-16.0) g/dL Hct 35.4 L (36.0-48.0) % MCV 82.7 (81.0-99.0) fL MCH 26.4 L (26.7-34.0) pg MCHC 31.9 (29.9-35.2) g/dL RDW 13.8 (11.0-15.0) % Plt Count 296 (150-450) 10^3/uL MPV 10.2 (9.5-13.5) fL Neut % (Auto) 68.1 (43.0-75.0) % Lymph % (Auto) 22.5 (20.5-60.0) % Miner % (Auto) 7.6 (1.7-12.0) % Eos % (Auto) 1.0 (0.9-7.0) % Baso % (Auto) 0.6 (0.2-2.0) % Neut # (Auto) 6.1 (1.4-6.5) 10^3/uL Lymph # (Auto) 2.0 (1.2-3.8) 10^3/uL Miner # (Auto) 0.7 (0.3-0.8) 10^3/uL Eos # (Auto) 0.1 (0.0-0.7) 10^3/uL Baso # (Auto) 0.1 (0.0-0.1) 10^3/uL Abs Immat Gran (auto) 0.02 (0.00-0.03) 10^3/uL Imm/Tot Granulo (auto) 0.2 (0.0-0.5) % D-Dimer 1.04 H* (<=0.59) mg/L FEU Sodium 140 (136-145) mmol/L Potassium 3.6 (3.5-5.1) mmol/L Chloride 106 (98-107) mmol/L Carbon Dioxide 26.9 (21.0-32.0) mmol/L Anion Gap 10.7 BUN 11.0 (7.0-18.0) mg/dL Creatinine 0.74 (0.55-1.02) mg/dL Est GFR ( Amer) >60 (>=60) Est GFR (Non-Af Amer) >60 (>=60) BUN/Creatinine Ratio 14.9 Glucose 101 (74-106) mg/dL Calcium 9.0 (8.5-10.1) mg/dL Total Bilirubin 0.3 (0.2-1.0) mg/dL AST 16 (15-37) U/L ALT 27 (14-59) U/L Alkaline Phosphatase 75 (46-116) U/L Troponin I High Sens 4.6 5.1 (4.0-51.3) pg/mL Total Protein 7.4 (6.4-8.2) g/dL Albumin 3.4 (3.4-5.0) g/dL Globulin 4.0 g/dL Albumin/Globulin Ratio 0.9 ECG Data Attestation: I personally reviewed and interpreted this ECG as follows: (Sinus rhythm at 90 bpm, normal axis, first-degree AV block with [place] interval of 226, no acute ST segment elevation or T wave inversion) Discharge Plan Discharge Stand Alone Forms: Portal Instructions Chief Complaint: Dental/Oral Clinical Impression: Toothache, Non-cardiac chest pain Patient Disposition: Home, Self-Care Time of Disposition Decision: 01:01 Condition: Good Print Language: Pakistani Instructions: Toothache (ED), Noncardiac Chest Pain (ED) Referrals: JA BERNSTEIN [Primary Care Provider] - 1 week
[2023-08-10] MEDS: ASPIRIN 81 MG TAB.CHEW 324 MG PO (22:26)
[2023-08-10] MEDS: AMOXICILLIN 500 MG CAPSULE PO (22:26)
[2023-08-10] MEDS: ONDANSETRON 4 MG RAPDIS TABLET SL (22:26)
[2023-08-10] MEDS: IBUPROFEN 600 MG TABLET PO (22:33)
[2023-08-10] MEDS: BENZOCAINE 30 ML, lidocaine HCL 15 ML MM (22:34)
[2023-08-10 22:48] LABS: Basophils Absolute Auto 0.1 10^3/uL (0.0-0.1); Basophils Percent Auto 0.6 % (0.2-2.0); Eosinophils Absolute Auto 0.1 10^3/uL (0.0-0.7); Hematocrit 35.4 % (36.0-48.0); Hemoglobin 11.3 g/dL (12.0-16.0); Immature Granulocytes Abs Auto 0.02 10^3/uL (0.00-0.03); Immature Granulocytes Pct Auto 0.2 % (0.0-0.5); Lymphocytes Percent Auto 22.5 % (20.5-60.0); Mean Corpuscular HGB Conc 31.9 g/dL (29.9-35.2); Mean Corpuscular Hemoglobin 26.4 pg (26.7-34.0); Mean Corpuscular Volume 82.7 fL (81.0-99.0); Mean Platelet Volume 10.2 fL (9.5-13.5); Monocytes Absolute Auto 0.7 10^3/uL (0.3-0.8); Monocytes Percent Auto 7.6 % (1.7-12.0); Neutrophils Absolute Auto 6.1 10^3/uL (1.4-6.5); Neutrophils Percent Auto 68.1 % (43.0-75.0); Platelet Count 296 10^3/uL (150-450); Red Blood Count 4.28 10^6/uL (4.20-5.40); Red Cell Distribution Width 13.8 % (11.0-15.0)
[2023-08-10 23:03] LABS: D Dimer 1.04 mg/L FEU (<=0.59)
[2023-08-10 23:05] LABS: Alanine Aminotransferase 27 U/L (14-59); Albumin Globulin Ratio 0.9; Albumin Level 3.4 g/dL (3.4-5.0); Alkaline Phosphatase 75 U/L (46-116); Anion Gap 10.7; Aspartate Amino Transferase 16 U/L (15-37); BUN Creatinine Ratio 14.9; Bilirubin Total 0.3 mg/dL (0.2-1.0); Carbon Dioxide 26.9 mmol/L (21.0-32.0); Chloride 106 mmol/L (98-107); Estimated GFR (African America >60 (>=60); Estimated GFR (Non-African Ame >60 (>=60); Glucose 101 mg/dL (74-106); Potassium 3.6 mmol/L (3.5-5.1); Sodium 140 mmol/L (136-145); Total Protein 7.4 g/dL (6.4-8.2)
[2023-08-10 23:07] LABS: Troponin I High Sensitivity 4.6 pg/mL (4.0-51.3)
--- NOTE | 2023-08-10 23:13 | CT_ITS ---
The [address] [address] Patient Name: PREETHI TRIANA MRN: [id number] date: 1960 Sex: F Assigned Patient Location: ER Current Patient Location: Accession/Order Number: [id number] Exam Date: 08/10/2023 23:40 Report Date: 08/11/2023 00:18 At the request of: LIVE MARKER Procedure: CT angio chest CT angio chest 08/10/2023 10:40 PM CDT: History: CP. Elevated d dimer Chest pain. Possible pulmonary embolism. Comparison: None. Technique: IV Contrast enhanced CTA imaging of the chest. Sagittal and coronal MIP reformatted images are provided. This CT exam was performed using one or more of the following dose reduction techniques: Automated exposure control, adjustment of the mA and/or KV according to patient size, or use of iterative reconstruction technique. Findings: The central airway is midline and patent. There is bilateral dependent and bibasilar atelectasis. There is no effusion or pneumothorax. The heart size is upper normal. There is no pericardial effusion. The pulmonary arteries are patent and normal in caliber. There is no pulmonary embolism. The thoracic aorta is normal in caliber. Limited imaging through the upper abdomen reveals no acute abnormality. The bony thorax is intact without acute abnormality. 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 CT/CT angio chest Impression: No acute cardiopulmonary process. No pulmonary embolism. Electronically authenticated by: ARMAND FLORES Date: 08/11/2023 00:18
[2023-08-10] MEDS: 0.9 % SODIUM CHLORIDE 1,000 ML 1000 ML IV (23:49)
[2023-08-11] VITALS: PULSE 85
[2023-08-11 00:10] VITALS: PULSE 88
[2023-08-11 00:20] VITALS: PULSE 88
[2023-08-11 00:30] VITALS: PULSE 89
[2023-08-11 00:40] VITALS: PULSE 89
--- NOTE | 2023-08-11 00:43 | ECG_ITS ---
The [facility] Test Date: 2023-08-10 Pat Name: PREETHI TRIANA Department: Room: - Gender: Female [employer]: : 1960 Requested By: [id number] Order Number: [id number] Reading MD: SOPHIA LOYD Measurements Intervals Candor Rate: 91 P: 48 VA: 226 QRS: 30 QRSD: 80 T: 14 QT: 362 QTc: 411 Interpretive Statements 1100 Sinus rhythm 2231 First degree AV block Low voltage across the precordium 9150 abnormal ECG No previous ECG available for comparison Electronically Signed On 08-11-2023 6:47:07 EDT by SOPHIA LOYD
[2023-08-11 00:45] LABS: Troponin I High Sensitivity 5.1 pg/mL (4.0-51.3)
[2023-08-11] MEDS: HYDROCODONE/ACET 5-325 MG TABLET 0.5 TAB PO (01:30)
[2023-08-11] MEDS: ONDANSETRON 4 MG RAPDIS TABLET SL (01:31)
[2023-08-11 01:34] VITALS: BP 148/90; PULSE 70; O2SAT 100
== END 2023-08-11 01:34 | disposition home or self-care (01) ==
PROVIDERS: Emergency Provider Emergency Medicine; PCP Family Medicine
DX: K08.89 Other specified disorders of teeth and supporting structures (principal); R07.89 Other chest pain; G89.29 Other chronic pain; M54.2 Cervicalgia; R79.89 Other specified abnormal findings of blood chemistry
CPT/HCPCS: 36415; 71275; 80053; 84484; 85025; 85378; 93005; 99285; Q0162; Q9967

== ENCOUNTER 2024-03-03 08:22 | Outpatient (OUT) | payer OTHER, SELFPAY ==
--- NOTE | 2024-03-03 08:27 | MM_ITS ---
Patient Name: PREETHI TRIANA MR#: [id number] : 1960 Exam Date: 03/03/2024 Ordering Doctor: DR JA BERNSTEIN . RADIOLOGY REPORT PROCEDURE: MM TOMOSYNTHESIS SCREENING BI COMPARISON: MM TOMOSYNTHESIS SCREENING BI, 02/25/2023. MG MAMM SCREEN 3D PRISCILLA CAD, 12/24/2021. INDICATIONS: Screening Calculator Name NCI Breast Cancer Risk Assessment Tool 5 Year Breast Cancer Risk 1.70% Lifetime Breast Cancer Risk 6.90% Personal Breast Cancer No Personal Ovarian Cancer No Treatments Thyroidectomy Family Cancers Mother with ovarian cancer at age 47. LOCATION: [facility] BREAST COMPOSITION: The breasts are heterogeneously dense,which may obscure small masses. FINDINGS: DIAGNOSTIC CATEGORY 2--BENIGN FINDING. NO CHANGE FROM COMPARISON. Scattered benign-appearing nodules are present. Scattered benign-appearing calcifications are present. Scattered benign-appearing lymph nodes are present. RIGHT BREAST: No significant suspicious finding. LEFT BREAST: No significant suspicious finding. RECOMMENDATIONS: ROUTINE MAMMOGRAM AND CLINICAL EVALUATION IN 12 MONTHS. PLEASE NOTE: A NORMAL MAMMOGRAM DOES NOT EXCLUDE THE POSSIBILITY OF BREAST CANCER. A CLINICALLY SUSPICIOUS PALPABLE LUMP SHOULD BE BIOPSIED. Dictated by: Sawyer Messer MD on 03/03/2024 at 09:40 Approved by: Sawyer Messer MD on 03/03/2024 at 09:41
--- OUTSIDE RECORDS SUMMARY | 2024-03-03 08:28 | XMS_ITS | CCD ---
Author Organization [facility] Care Team Providers Care Outside Laborer Name Role Phone Sonal Miguel Unavailable Kia Marie Unavailable DAY, DR PERES Primary Care Unavailable MARKER, DR MANCINI Attending Unavailable MARKER, DR MANCINI Consulting Unavailable MARKER, DR MANCINI Admitting Unavailable HEMEYER, DR PERES Consulting Unavailable HEMEYER, DR PERES Primary Care Unavailable HEMEYER, DR PERES Admitting Unavailable HEMEYER, DR PERES Attending Unavailable RAMSAY, DR MICHAEL Chong Consulting Unavailable None, Physician Primary Care Provider KLEVER Allred Attending Provider Rene Allred Attending Unavailable None Primary Care Unavailable Castro Bernstein MD Primary Care Provider DO Rolf Redding Attending Provider Rolf Redding Admitting Unavailable Rolf Redding Attending Unavailable CASTRO BERNSTEIN Attending Unavailable CASTRO BERNSTEIN Attending Unavailable ROLF REDDING Attending Unavailable CASTRO BERNSTEIN Referring Unavailable ROLF REDDING Attending Unavailable CASTRO BERNSTEIN Attending Unavailable HEMECASTRO CISNEROS Attending Unavailable HEMECASTRO CISNEROS Attending Unavailable BRENDAN VANESSA Attending Unavailable BRENDAN VANESSA Referring Unavailable Allergies Allergy Classification Reported Allergen(s) Allergy Type Date of Onset Reaction(s) Facility (10 sources) Sulfamethoxazole / Trimethoprim Drug Allergy 10-06-19 17 Unknown [facility] Other (11 sources) Vancomycin Drug Allergy 10-06-19 17 hives [facility] Other (1 source) Sulfamethoxazole / Trimethoprim Drug Allergy 10-02-19 22 [facility] Repository (1 source) Sulfonamides (Antibiotic) Drug allergy (disorder) 01-04-20 15 [facility] Repository (1 source) Vancomycin Drug Allergy 01-04-20 15 [facility] (7 sources) buPROPion Drug Allergy 07-24-19 22 [facility] (7 sources) FLUoxetine Drug Allergy 07-24-19 22 [facility] (8 sources) Latex Allergy to substance 05-17-19 21 Redness of Skin,rash itching [facility] (7 sources) Sulfonamides (Antibiotic) Drug Allergy 07-24-19 22 [facility] (7 sources) traMADol Drug Allergy 07-24-19 22 [facility] (7 sources) venlafaxine Drug Allergy 07-24-19 22 [facility] (7 sources) Wound Dressing Adhesive Drug Allergy 10-06-19 17 Rash [facility] (1 source) Sulfamethoxazole Drug Allergy 04-13-19 23 Itching, bad stomach pain [facility] (1 source) Trimethoprim Drug Allergy 04-13-19 23 Itching, bad stomach pain [facility] (1 source) bandaids Allergy to substance 05-17-19 21 Itching, redness of skin [facility] Medications Current Medications Medication Drug Class(es) Dates Sig (Normalized) Sig (Original) acetaminophen 325 mg / HYDROcodone bitartrate 5 mg oral tablet (4 sources) Opioid Agonist Start: 08-11-2023 take 1 tablet by mouth every six hours as needed HYDROcodone-acetamin ophen (Sanderson) 5-325 MG tablet Take 1 tablet by mouth every 6 (six) hours if needed 08/11/2023 Active [id number] 200 actuat albuterol 0.09 mg/actuat metered dose [...] hydrochloride 0.137 mg/actuat metered dose nasal spray (6 sources) Histamine-1 Receptor Antagonist Start: 02-24-2023 End: 08-23-2023 take 1 spray(s) nasal route in the morning azelastine (Astelin) 0.1 % nasal spray Indications: Non-seasonal allergic rhinitis, unspecified trigger Administer 1 spray into each nostril in the morning and 1 spray before bedtime. Use in each nostril as directed. 90 mL 1 02/24/2023 Active benzonatate 100 mg oral capsule (1 [...] 2020 12:00am ergocalciferol 1.25 mg oral capsule (7 sources) Provitamin D2 Compound Start: 12-22-2022 take 1 capsule by mouth every other week Vitamin D, Ergocalciferol, 80814 units capsule TAKE ONE CAPSULE BY MOUTH EVERY OTHER WEEK 12/22/2022 Active hydrOXYzine hydrochloride 10 mg oral tablet (7 sources) Antihistamine Start: 10-23-2022 take 1-2 tablets by mouth every eight hours at bedtime as needed hydrOXYzine HCl (Atarax) 10 MG tablet TAKE 1 TO 2 TABLETS BY MOUTH AT BEDTIME NEEDED FOR ITCHING, can TAKE EVERY 8 HOURS, FOR 30 DAYS 10/23/2022 Active Iron Carbonyl-Vitamin C-FOS (Chewable Iron) 30-10-25 MG chewable tablet (4 sources) Iron Carbonyl-Vitamin C-FOS (Chewable Iron) 30-10-25 MG chewable tablet Chew 30 mg Active levoFLOXacin 750 mg oral tablet (1 source) Quinolone Antimicrobial Start: 04-08-2023 End: 04-18-2023 take 1 tablet by mouth in the morning levoFLOXacin (Levaquin) 750 MG tablet Indications: Pneumonia of left lower lobe due to infectious organism Take 1 tablet (750 mg) by mouth in the morning for 10 days. 10 tablet 0 04/08/2023 04/18/2023 Active levothyroxine sodium 0.2 mg oral tablet (20 sources) l-Thyroxine Start: 12-18-2023 take 1 tablet by mouth in the morning levothyroxine (Synthroid, Levoxyl) 200 MCG tablet Indications: Marita's disease (CMS/HCC) Take 1 tablet (200 mcg) by mouth in the morning. 90 tablet 1 12/18/2023 Active Start: 11-07-2021 take 1 capsule by mo [facility] in the morning levothyroxine (Tirosint) 200 MCG capsule Take 200 mcg by mouth in the morning. Take on an empty stomach.. 11/07/2021 Active Start: 05-16-2020 take 300 ug by mouth once daily in the morning Levothyroxine Active 300 MCG PO Every morning May 16, 2020 12:00am Start: 02-02-2018 End: 12-18-2023 take 200 ug by mouth once daily Levothyroxine Disconti nued 200 MCG PO Daily February 02, 2018 1:00am May 16, 2020 7:11am Start: 02-02-2018 End: 05-16-2020 take 50 ug by mouth once daily Levothyroxine Discontin ued 50 MCG PO Daily February 02, 2018 1:00am May 16, 2020 7:11am take 1.5 tablets by mouth in the morning levothyroxine (Synthroid, Levoxyl) 50 MCG tablet Take 1.5 tablets by mouth in the morning. Take before meals. For total 250McG. Active take 1 tablet by jay once daily in the morning Levothyroxine Sodium 300 MCG 1 tablet in the morning on an empty stomach Orally Once a day Active loratadine 10 mg oral tablet (11 sources) Start: 10-25-2020 take 10 mg by mouth once daily in the morning Loratadine Active 10 MG PO Every morning October 25, 2020 12:00am midodrine hydrochloride 10 mg oral tablet (7 sources) alpha-Adrenergi c Agonist Start: 02-24-2023 End: 08-23-2023 take 1 tablet by mouth in the morning midodrine (Proamatine) 10 MG tablet Indications: POTS (postural orthostatic tachycardia syndrome) Take 1 tablet (10 mg) by mouth in the morning and 1 tablet (10 mg) before bedtime. 180 tablet 1 02/24/2023 Active take 1 tablet by jay th every twelve hours Midodrine HCl 10 MG 1 tablet Orally Twic e a day Active Multivitamin preparation (1 source) Start: 02-02-2018 take 1 tablet by mouth once daily Multivitamin Active 1 TAB PO Daily February 02, 2018 1:00am nabumetone 750 mg oral tablet (4 sources) Nonsteroidal Anti-inflammatory Drug Start: 11-29-2023 End: 12-29-2023 take 1 tablet by mouth in the morning nabumetone (Relafen) 750 MG tablet Indications: Sprain of medial collateral ligament of left knee, initial encounter Take 1 tablet (750 mg) by mouth in the morning and 1 tablet (750 mg) before bedtime. 60 tablet 11/29/2023 12/29/2023 Active ofloxacin 3 mg/ml ophthalmic solution (1 source) Quinolone Antimicrobial Start: 12-21-2020 take 1 drop(s) into the eye(s) four times daily Ofloxacin 0.3 % 1 drop into affected eye Ophthalmic Four times a day for 7 day(s) Nov, Active omeprazole 20 mg delayed release oral tablet (11 sources) Proton Pump Inhibitor Start: 10-25-2020 take 20 mg by mouth once daily in the morning Omeprazole Active 20 MG PO Every morning October 25, 2020 12:00am take 1 capsule by mouth once agnieszka ly Omeprazole 20 MG 1 capsule 30 minutes before morning meal Orally Once a day Active ondansetron 4 mg oral tablet (4 sources) Serotonin-3 Receptor Antagonist Start: 08-11-2023 take 1 tablet by mouth every eight hours as needed for nausea ondansetron (Zofran) 4 MG tablet Take 4 mg by mouth every 8 (eight) hours if needed for nausea 08/11/2023 Active predniSONE 20 mg oral tablet (1 source) Start: 04-13-2022 take 1 tablet by mouth every twelve hours predniSONE 20 MG 1 tablet Orally 2 times a day for 5 day(s) Apr, Active sodium chloride 9 mg/ml inhalation solution (5 sources) Start: 04-08-2023 End: 04-07-2024 sodium chloride 0.9 % nebulizer solution Indications: Pneumonia of left lower lobe due to infectious organism Take 3 mL by nebulization if needed for wheezing 90 mL 12 04/08/2023 04/07/2024 Active Start: 04-08-2023 End: 04-18-2023 sodium chloride 3% nebulizer solution Indications: Pneumonia of left lower lobe due to infectious organism Take 3 mL by nebulization 4 (four) times a day as needed for cough for up to 10 days 150 mL 0 04/08/2023 04/18/2023 Active UNABLE TO FIND (4 sources) UNABLE TO FIND 1 ,600 mg in the morning and 1,600 mg before bedtime. Med Name: [employer]. Active valACYclovir 500 mg oral tablet (8 sources) Herpesvirus Nucleoside Analog DNA Polymerase Inhibitor, Herpes Simplex Virus Nucleoside Analog DNA Polymerase Inhibitor, Herpes Zoster Virus Nucleoside Analog DNA Polymerase Inhibitor Start: End: take 1 tablet by mouth once daily valACYclovir (Valtrex) 500 MG tablet Indications: Herpes Zoster Infection Take 1 tablet (500 mg) by mouth Daily 90 tablet 1 09/14/2023 03/12/2024 Active Start: 02-02-2018 End: 08-23-2023 take 1 tablet [...] Problem Classification Problem Date Documented Date Episodic/Chronic Administrative/social admission (2 sources) Patient encounter status; Translations: [Dietary counseling and surveillance] 12-01-2023 Episodic Cancer of thyroid (2 sources) History of malignant neoplasm of thyroid; Translations: [Personal history of malignant neoplasm of thyroid] 12-01-2023 Episodic Chronic obstructive pulmonary disease and bronchiectasis (1 source) Bronchitis, not specified as acute or chronic Episodic Complications of surgical procedures or medical care (10 sources) Postprocedural hypothyroidism; Translations: [Postoperative hypothyroidism] Onset: 12-03-2014 12-21-2022 Chronic Diverticulosis and diverticulitis (7 sources) Diverticulosis of colon; Translations: [Diverticulosis of large intestine without perforation or abscess without bleeding] Onset: 06-25-2021 12-21-2022 Chronic Malaise and fatigue (7 sources) Chronic fatigue syndrome; Translations: [Chronic fatigue syndrome] Onset: 11-12-2017 12-21-2022 Chronic Nutritional deficiencies (9 sources) Vitamin D deficiency; Translations: [Vitamin D deficiency, unspecified] Onset: 02-27-2020 12-21-2022 Chronic Other aftercare (1 source) Other terminal manager (current) drug therapy; Translations: [OTH OFFICE ENGINEER CURRENT DRUG THERAPY] Onset: 10-03-2021 Episodic Other connective tissue disease (1 source) Fibromyalgia; Translations: [FIBROMYALGIA] Onset: 10-03-2021 Episodic Other nutritional; endocrine; and metabolic disorders (1 source) Body mass index 30+ - obesity; Translations: [Body mass index (BMI) 36.0-36.9, adult] 04-08-2023 Chronic Other nutritional; endocrine; and metabolic disorders (2 sources) Obesity; Translations: [Class 2 obesity without serious comorbidity with body mass index (BMI) of 35.0 to 35.9 in adult, unspecified obesity type] 12-01-2023 Chronic Other upper respiratory infections (1 source) Acute sinusitis, unspecified Episodic Pneumonia (except that caused by tuberculosis or sexually transmitted disease) (1 source) Infective pneumonia; Translations: [Pneumonia, unspecified organism] 04-08-2023 Episodic Residual codes; unclassified (1 source) Sleep apnea, unspecified; Translations: [SLEEP APNEA UNSPECIFIED] Onset: 10-03-2021 Chronic Residual codes; unclassified (7 sources) Obstructive sleep apnea syndrome; Translations: [Obstructive [...] codes; unclassified (1 source) Pain, unspecified Episodic Thyroid disorders (1 source) Marita thyroiditis; Translations: [Autoimmune thyroiditis] 12-18-2023 Chronic Viral infection (7 sources) Herpetic vulvovaginitis; Translations: [Herpesviral vulvovaginitis] Onset: 08-02-2015 12-21-2022 Chronic Past or Other Problems Problem Classification Problem Date Documented Da te Episodic/Chronic Deficiency and other anemia (4 sources) Iron deficiency anemia; Translations: [Iron deficiency anemia, unspecified] Onset: 06-10-2023 06-10-2023 Episodic Hemorrhoids (4 sources) Internal hemorrhoids grade III; Translations: [Third degree hemorrhoids] Onset: 07-06-2023 07-06-2023 Episodic Inflammation; infection of eye (except that caused by tuberculosis or sexually transmitteddisease) (1 source) Unspecified acute conjunctivitis, left eye Onset: 12-21-2020 Resolved: 12-21-2020 Episodic Nutritional deficiencies (4 sources) Iron deficiency; Translations: [Iron deficiency] Onset: 06-10-2023 Resolved: 09-07-2023 09-07-2023 Episodic Other aftercare (4 sources) Polypharmacy ; Translations: [Other shelter (current) drug therapy] Onset: 08-17-2023 08-17-2023 Episodic Other circulatory disease (4 sources) Orthostatic hypotension; Translations: [Orthostatic hypotension] Onset: 08-17-2023 08-17-2023 Episodic Other connective tissue disease (1 source) Pain in left hand Onset: 05-18-2021 Resolved: 05-18-2021 Episodic Other diseases of veins and lymphatics (10 sources) Peripheral venous insufficiency; Translations: [Venous insufficiency (chronic) (peripheral)] Onset: 12-28-2019 12-21-2022 Episodic Other diseases of veins and lymphatics (7 sources) Venous stasis; Translations: [Other specified disorders of veins] Onset: 12-14-2014 12-21-2022 Episodic Other gastrointestinal disorders (4 sources) Heartburn; Translations: [Heartburn] Onset: 06-10-2023 06-10-2023 Episodic Other gastrointestinal disorders (4 sources) Altered bowel function; Translations: [Change in bowel habit] Onset: 06-10-2023 06-10-2023 Episodic Other non-traumatic joint disorders (1 source) Pain in right wrist Onset: 05-18-2021 Resolved: 05-18-2021 Episodic Other nutritional; endocrine; and metabolic disorders (8 sources) Morbid obesity; Translations: [Morbid (severe) obesity due to excess calories] Onset: 04-15-2015 Resolved: 08-17-2023 12-21-2022 Chronic Other screening for suspected conditions (not mental disorders or infectious disease) (8 sources) Encounter for screening mammogram for malignant neoplasm of breast; Translations: [Patient encounter status] Onset: 12-24-2021 Resolved: 08-11-2023 Episodic Sprains and strains (2 sources) Unspecified sprain of right wrist, initial encounter; Translations: [Sprain of unspecified part of left wrist and hand, initial encounter] Onset: 05-18-2021 Resolved: 05-18-2021 Episodic Thyroid disorders (7 sources) Sick-euthyroid syndrome; Translations: [Sick-euthyroid syndrome] Onset: 12-14-2014 12-21-2022 Episodic Varicose veins of lower extremity (15 sources) Pain co-occurrent and due to varicose veins of bilateral legs; Translations: [Varicose veins of bilateral lower extremities with pain] Onset: 04-06-2017 Episodic Results Test Name Value Interpretation Reference Range Facility [facility] 06-24-2023 L Specimen: [id number] Received: 06/24/23 Status: REY Marte Num: [id number] Spec Type: Surgical Subm Dr: Rolf Redding DO Tissues: A Gastric Biopsy (GASTRIC ANTRUM) Procedures: HE/2, Gross/Micro L4 Age/ Patient Sex Location Account Attending Physician Preethi Triana 62/F [place] [id number] Rolf Redding DO SPEC NUM: [id number] RECD: 06/24/23 STATUS: REY MARTE NUM: [id number] JESSIE: 06/24/23- SUBM DR: Rolf Redding DO ENTERED: 06/24/23 [facility] DR: [facility] SPEC TYPE: Surgical DEPT: S ORDERED: HE/2, [...] change in bowel habit TW CPT Codes 52084 Specimen: [id number] Received: 06/24/23 Status: REY Cartwrightinna Num: [id number] Spec Type: Surgical Subm Dr: Rolf Redding DO Tissues: A Gastric Biopsy (GASTRIC ANTRUM) Procedures: Nadir MURDOCK/Mansi L4 Patient: Preethi Triana [id number] (Continued) Signed (signature on file) Gerry-Vu Sal MD 06/26/23 8115 Normal [facility] Quick Fluon 04-13-2022 FLUAV Ab CF (S) [Titer] Negative [facility] Other Quick Flu [facility] Other MG MAMM SCREEN 3D PRISCILLA CADon 12-24-2021 MG MAMM SCREEN 3D PRISCILLA CAD Patient: PREETHI TRIANA Exam Date: 12/24/2021 : 1960 Gender:F Ordering : DR CASTRO BERNSTEIN . Admission #: [id number] Family : Order #: [id number] CLICK HERE TO VIEW EXAM RADIOLOGY REPORT [...] ovarian cancer at age 46. LOCATION: [facility] BREAST COMPOSITION: Heterogeneously dense,which may obscure small [...] MD on 12/24/2021 at 08:06 Normal [facility] XR wrist RT min 3V*on 2021 XR wrist RT min 3V* [facility] Other XR wrist RT min 3V* [facility] [place] [facility] Other XR wrist RT min 3V* [address] [place] [address] [facility] Other XR wrist RT min 3V* [place] [address] [facility] Other XR wrist RT min 3V* XRay Report [facility] Other XR wrist RT min 3V* Signed [facility] Other XR wrist RT min 3V* Patient: Preethi Triana MR#: [id number] [facility] Other XR wrist RT min 3V* 9 [facility] Other XR wrist RT min 3V* : 1960 Acct:[id number] [facility] Other XR wrist RT min 3V* Age/Sex: 60 / F ADM Date: 05/18/21 [facility] Other XR wrist RT min 3V* Loc: [facility] Room: Type: [facility] Other XR wrist RT min 3V* Attending Dr: Kia LOPEZ [facility] Other XR wrist RT min 3V* Ordering Provider: JESSICA Campbell [facility] Other XR wrist RT min 3V* Date of Service: 05/18/21 [facility] Other XR wrist RT min 3V* XR/XR wrist RT min 3V*: PAIN AFTER FALL [facility] Other XR wrist RT min 3V* ([id number]) XR/XR hand LT min 3V*: PAIN AFTER FALL [facility] Other XR wrist RT min 3V* Copies to: JESSICA Campbell [facility] Other XR wrist RT min 3V* XR hand LT min 3V*, XR wrist RT min 3V* 05/18/2021 11:56 AM [facility] Other XR wrist RT min 3V* SIGNS AND SYMPTOMS: Fall with pain over the right wrist which is greatest over the ulnar aspect and [facility] Other XR wrist RT min 3V* within the left hand greatest along the fourth and fifth metacarpals. [facility] Other XR wrist RT min 3V* PROTOCOL: Frontal, lateral, and oblique radial graphs of the left hand and right wrist [facility] Other XR wrist RT min 3V* COMPARISON: None [facility] Other XR wrist RT min 3V* FINDINGS: [facility] Other XR wrist RT min 3V* Left hand: [facility] Other XR wrist RT min 3V* There is no evidence of fracture or dislocation. Significant degenerative changes are noted in the [facility] Other XR wrist RT min 3V* distal interphalangeal joint of the fifth digit. There is mild narrowing of the first [facility] Other XR wrist RT min 3V* metacarpophalangeal junction. The joint spaces are preserved otherwise. No significant soft tissue [facility] Other XR wrist RT min 3V* swelling. [facility] Other XR wrist RT min 3V* Right wrist: [facility] Other XR wrist RT min 3V* The radiocarpal joint and carpal rows are preserved. There is mild soft tissue swelling over the [facility] Other XR wrist RT min 3V* dorsum of the wrist. There is no evidence of acute displaced fracture. No dislocation or [facility] Other XR wrist RT min 3V* subluxation. [facility] Other XR wrist RT min 3V* XR/XR hand LT min 3V* [facility] Other XR wrist RT min 3V* IMPRESSION: [facility] Other XR wrist RT min 3V* No evidence of acute displaced fracture. [facility] Other XR wrist RT min 3V* Degenerative changes are noted, greatest in the fifth distal interphalangeal joints. [facility] Other XR wrist RT min 3V* No acute displaced fracture. No subluxation or dislocation. [facility] Other XR wrist RT min 3V* There is soft tissue swelling over the dorsum of the right wrist. [facility] Other XR wrist RT min 3V* Impression dictated by: Earnest King M.D.05/18/2021 11:58 AM [facility] Other XR wrist RT min 3V* Dictation Location: [place] [address] [facility] Other XR wrist RT min 3V* Transcribed By: JILL 05/18/21 [facility]8 [facility] Other XR wrist RT min 3V* Dictated By: Earnest King II, MD 05/18/21 [facility] Other XR wrist RT min 3V* Signed By: [facility] Other XR wrist RT min 3V* 05/18/21 [facility] Other FREE T4on 07-20-2019 Free T4 [Mass/Vol] 0.76 ng/dL Normal 0.61-1.60 [facility] Comment on above: Result Comment: Perf ormed at [facility] [facility] [address] [address] Performed By: #### 1 [id number], [id number], 20181 #### [facility] Unless Otherwise Noted [address] [place] [address] / COLA #4724/CLIA # [id number] THYROGLOBULIN QUANTITATIVE A ND ANTIBODYon 07-20-2019 ANTI-THYROGLOBULIN AB <1 Normal <4.0 [facility] Comment on above: Result Comment: Perf ormed at [facility] [address] [address] Performed By: #### 1 4631, 48277, 23048 #### [facility] Unless Otherwise Noted [address] [place] [address] / COLA #4724/CLIA # [id number] THYROGLOBULIN <0.1 Normal 0-35 [facility] Comment on above: Result Comment: Quantitation of Thyroglobulin may be unreliable due to the presence of Anti-Thyroglobulin antibodies. The results cannot be interpreted as absolute evidence for the presence or absence of malignant disease. [facility] [address] [place] [address] CLIA No. [id number] CAP Accreditation No. [id number] Wom[employer] Volleyball Coach: Reg Oliver M.D. Performed By: #### 1 1177, 54119, 54725 #### [facility] Unless Otherwise Noted [address] [place] [address] / COLA #8924/CLIA # [id number] TSHon 07-20-2019 TSH Qn 35.00 uIU/mL High 0.49-4.67 [facility] Comment on above: Result Comment: Perf ormed at [facility] [address] [address] Performed By: #### 1 3335, 46073, 64716 #### [facility] Unless Otherwise Noted [address] [place] [address] / COLA #4724/CLIA # [id number] Vital Signs Date Time Vital Sign Value Performing Clinician Facility 12-01-2023 10:28-0400 Body height 172.7 cm Brendan Vanessa MD Work Phone: [facility] 12-01-2023 10:28-0400 Body mass index (BMI) [Ratio] 35.88 kg/m2 Brendan Vanessa MD Work Phone: [facility] 12-01-2023 10:28-0400 Body weight 107.05 kg Brendan Vanessa MD Work Phone: [facility] 12-01-2023 10:28-0400 Diastolic blood pressure 82 mm[Hg] Brendan Vanessa MD Work Phone: [facility] 12-01-2023 10:28-0400 Heart rate 78 /min Brendan Vanessa MD Work Phone: [facility] 12-01-2023 10:28-0400 Respiratory rate 18 /min Brendan Vanessa MD Work Phone: [facility] 12-01-2023 10:28-0400 Systolic blood pressure 128 mm[Hg] Brendan Vanessa MD Work Phone: [facility] 04-08-2023 10:20-0500 Body height 172.7 cm Castro Bernstein MD Work Phone: [facility] 04-08-2023 10:20-0500 Body mass index (BMI) [Ratio] 36.19 kg/m2 Castro Bernstein MD Work Phone: [facility] 04-08-2023 10:20-0500 Body weight 107.96 kg Castro Bernstein MD Work Phone: [facility] 04-13-2022 10:35-0500 Body height 172.72 cm Kia Marie Other [facility] Other 04-13-2022 10:35-0500 Body mass index (BMI) [Ratio] 34.82 kg/m2 Kia Marie Other [facility] Other 04-13-2022 10:35-0500 Body temperature 97.8 [degF] Kia Marie Other [facility] Other 04-13-2022 10:35-0500 Body weight 103.87 kg Kia Cynthia Other [facility] Other 04-13-2022 10:35-0500 Diastolic blood pressure 63 mm[Hg] Kia Cynthia Other [facility] Other 04-13-2022 10:35-0500 Respiratory rate 18 /min Kia Cynthia Other [facility] Other 04-13-2022 10:35-0500 SaO2% (BldA) [Mass fraction] 96 % Kia Cynthia Other [facility] Other 04-13-2022 10:35-0500 Systolic blood pressure 99 mm[Hg] Kia Cynthia Other [facility] Other 05-18-2021 12:20-0400 Body height 172.72 cm Kia Cynthia Other [facility] Other 05-18-2021 12:20-0400 Body mass index (BMI) [Ratio] 34.75 kg/m2 Kia Cynthia Other [facility] Other 05-18-2021 12:20-0400 Body temperature 98.1 [degF] Kia Cynthia Other [facility] Other 05-18-2021 12:20-0400 Body weight 103.69 kg Kia Cynthia Other [facility] Other 05-18-2021 12:20-0400 Diastolic blood pressure 79 mm[Hg] Kia Cynthia Other [facility] Other 05-18-2021 12:20-0400 Respiratory rate 18 /min Kia Marie Other [facility] Other 05-18-2021 12:20-0400 SaO2% (BldA) [Mass fraction] 99 % Kia Cynthia Other [facility] Other 05-18-2021 12:20-0400 Systolic blood pressure 133 mm[Hg] Kianikita Marie Other [facility] Other 12-21-2020 12:40-0400 Body height 172.72 cm Sonal Ginty Other [facility] Other 12-21-2020 12:40-0400 Body mass index (BMI) [Ratio] 34.75 kg/m2 Sonal Ginty Other [facility] Other 12-21-2020 12:40-0400 Body temperature 97.7 [degF] Sonal Ginty Other [facility] Other 12-21-2020 12:40-0400 Body weight 103.69 kg Sonal Ginty Other [facility] Other 12-21-2020 12:40-0400 Diastolic blood pressure 76 mm[Hg] Osnal Ginty Other [facility] Other 12-21-2020 12:40-0400 Respiratory rate 18 /min Sonal Ginty Other [facility] Other 12-21-2020 12:40-0400 SaO2% (BldA) [Mass fraction] 98 % Sonal Ginty Other [facility] Other 12-21-2020 12:40-0400 Systolic blood pressure 118 mm[Hg] Sonal Juliafelicita Other [facility] Other Encounters Encounter Date Encounter Type Care Provider Facility Start: 12-17-2023 End: 12-18-2023 Refill Brendan Vanessa MD Work Phone: [facility] Comment on above: Marita's disease (CMS/HCC) (Primary Dx) Start: 12-01-2023 End: 12-01-2023 Lina Vanessa MD Work Phone: [facility] Start: 12-01-2023 End: 12-01-2023 Bamhéctor flowssandra Vanessa MD Work Phone: [facility] Start: 12-01-2023 End: 12-01-2023 ambulatory BRENDAN VANESSA Not Available Start: 12-01-2023 End: 12-01-2023 Office outpatient visit 25 minutes Brendan Vanessa MD Work Phone: [facility] Comment on above: Postoperative hypoth yroidism (CMS/HCC) (Primary Dx); History of thyroid cancer; Class 2 obesity without serious comorbidity with body mass index (BMI) of 35.0 to 35.9 in adult, unspecified obesity type; Encounter for dietary consultation; Vitamin D deficiency Start: 11-29-2023 End: 11-29-2023 ambulatory CASTRO BERNSTEIN Not Available Start: 09-14-2023 End: 09-14-2023 ambulatory CASTRO BERNSTEIN Not Available Start: 08-17-2023 End: 08-17-2023 ambulatory CASTRO BERNSTEIN Not Available Start: 07-06-2023 End: 07-06-2023 ambulatory ROLF REDDING Not Available Start: 06-24-2023 End: 06-24-2023 ambulatory Rolf Redding [facility] Work Phone: Start: 06-24-2023 End: 06-24-2023 Departed Referred DO Rolf Durga Work Phone: [facility] [place] Work Phone: Start: 06-10-2023 End: 06-10-2023 ambulatory ROLF Moore VANESSAKristie Not Available Start: 04-08-2023 Bamboo flowsheet Castro cisneros MD Work Phone: [facility] Start: 04-08-2023 Bamboo flowsheet Castro cisneros MD Work Phone: [facility] Start: 04-08-2023 End: 04-08-2023 Office outpatient visit 15 minutes Castro Bernstein MD Work Phone: [facility] Comment on above: Pneumonia of left lo wer lobe due to infectious organism; Morbid obesity (CMS/HCC); BMI 36.0-36.9,adult Start: 04-08-2023 End: 04-08-2023 ambulatory CASTRO BERNSTEIN Not Available Start: 04-07-2023 Chart abstracting Castro phillips MD Work Phone: [facility] Start: 02-24-2023 End: 02-24-2023 ambulatory CASTRO BERNSTEIN Not Available Start: 10-12-2022 End: 10-12-2022 ambulatory Rene Allred Facility:[facility] Start: 10-12-2022 End: 10-12-2022 ambulatory Physician None Work Phone: [facility] Work Phone: Start: 04-13-2022 End: 04-13-2022 ambulatory Kia Marie Other [facility] Other Start: 04-13-2022 Office outpatient vi sit 15 minutes Kia Marei [facility] Start: 12-24-2021 End: 12-25-[address] CASTRO BERNSTEIN Facility: Start: 10-02-2021 End: 10-02-[address] CASTRO BERNSTEIN Facility:[facility] Start: 05-18-2021 End: 05-18-2021 ambulatory Kia Cynthia Other [facility] Other Start: 05-18-2021 Office outpatient vi sit 15 minutes Kia Cynthia [facility] Start: 12-21-2020 End: 12-21-2020 ambulatory Sonal Dumontnty Other [facility] Other Start: 12-21-2020 Office outpatient vi sit 15 minutes Sonal Ginty [facility] Procedures Date Procedure Procedure Detail Performing Clinician Start: 02-25-2023 Mammography Castro phillips MD Work Phone: Start: 01-07-2015 Colonoscopy Castro phillips MD Work Phone: Plan of Treatment Date Care Activity Detail Author Start: 01-07-2025 Screening for malignant neoplasm of colon [facility] Start: 11-29-2024 End: 11-29-2024 Patient encounter procedure 11/29/2024 10:00 AM EDT Office Visit [facility] [address] [place] [phone] Brendan Vanessa MD [address] [place] [address] [facility] Start: 03-14-2024 End: 03-14-2024 Patient encounter procedure 03/14/2024 9:30 AM EST Office Visit [facility] [address] [address] Castro Bernstein MD [address] [place] [address] (Fax) [facility] Start: 02-26-2024 Screening for malignant neoplasm of breast Mammogram [facility] Start: 12-01-2023 End: 11-30-2024 Thyrotropin [Units/volume] in Serum or Plasma TSH Lab Routine Postoperative hypothyroidism (CMS/HCC) Expected: 12/01/2023 (Approximate), Expires: 11/30/2024 [facility] Comment on above: Expected: 12/01/2023 (Approximate), Expi res: 11/30/2024 Start: 12-01-2023 End: 11-30-2024 Thyroxine (T4) free [Mass/volume] in Serum or Plasma T4, free Lab Routine Postoperative hypothyroidism (CMS/HCC) Expected: 12/01/2023 (Approximate), Expires: 11/30/2024 [facility] Comment on above: Expected: 12/01/2023 (Approximate), Expi res: 11/30/2024 Start: 12-01-2023 End: 11-30-2024 Triiodothyronine (T3) Free [Mass/volume] in Serum or Plasma T3, free Lab Routine Postoperative hypothyroidism (CMS/HCC) Expected: 12/01/2023 (Approximate), Expires: 11/30/2024 [facility] Work Phone: Comment on above: Expected: 12/01/2023 (Approximate), Expi res: 11/30/2024 Start: 12-01-2023 End: 11-30-2024 Vitamin D 1,25 dihydroxy Vitamin D 1,25 dihydroxy Lab Routine Postoperative hypothyroidism (CMS/HCC) Expected: 12/01/2023 (Approximate), Expires: 11/30/2024 [facility] Comment on above: Expected: 12/01/2023 (Approximate), Expi res: 11/30/2024 Start: 10-31-2023 Influenza vaccination Influenza Vaccine (#1) [facility] Start: 04-08-2023 End: 04-08-2023 Patient encounter procedure [facility] Comment on above: Arrived Start: 1960 Screening for malignant neoplasm of colon [facility] Immunizations Immunization Date Immunization Notes Care Provider Fa cility 12-03-2022 Influenza, injectabl e, Madin [place] Canine Kidney, preservative free, quadrivalent Castro Bernstein MD Work Phone: [facility] 12-03-2022 influenza virus vaccine, unspecified formulation Brendan aVnessa MD Work Phone: [facility] 11-24-2021 Influenza, injectabl e, Madin [place] Canine Kidney, preservative free, quadrivalent Castro Bernstein MD Work Phone: [facility] 2020 influenza, injectabl e, quadrivalent, preservative free Catsro Bernstein MD Work Phone: [facility] 06-20-2020 COVID-19 mRNA-1273 (Moderna) DO Rolf Redding Work Phone: [facility] 05-23-2020 COVID-19 mRNA-1273 (Moderna) DO Rolf Redding Work Phone: [facility] 11-15-2019 Influenza, injectabl e, Madin [place] Canine Kidney, preservative free, quadrivalent Castro Bernstein MD Work Phone: [facility] 12-03-2006 hepatitis B vaccine, adult dosage Castro Bernstein MD Work Phone: [facility] 07-30-2006 hepatitis B vaccine, adult dosage Castro Bernstein MD Work Phone: [facility] 06-01-2006 hepatitis B vaccine, adult dosage Castro Bernstein MD Work Phone: [facility] Payers Date Payer Category Payer Unknown [id number] 2022 Private Health Insurance [id number] 2022 Private Health Insurance [id number] 1960 Unknown [id number]. 593 1959 Unknown [id number] [id number]. 593 1959 Unknown [id number] [id number]. 1259 1959 Unknown [id number] [id number]. 9 1959 Unknown [id number] [id number]. 1258 1959 Unknown [id number] [id number]. 1258 1959 Unknown [id number] [id number]. 1258 1959 Unknown [id number] 2.16.840.1.700333.3.579.2. 1258 1959 Unknown [id number] [id number]. 1258 1959 Unknown [id number] [id number]. 9 1960 Private Health Insurance [id number] Private Health Insurance [id number] Self-pay Unknown [facility] [id number] Unknown [id number] 139 Social History Date Type Detail Facility Start: 02-24-2023 End: 09-14-2023 Sex Assigned At [facility] [employer] Other Start: 1960 Sex Assigned At Female L [facility] Start: 10-31-2020 End: 02-23-2023 Tobacco smoking status NHIS Never smoked tobacco [facility] Start: 02-23-2023 Tobacco use and exposure Smokeless tobacco non-user [facility] Start: 04-07-2023 End: 11-12-2023 Alcohol intake Ex-drinker (finding) [facility] Start: 02-24-2023 End: 09-14-2023 History of Social function [facility] Start: 04-07-2023 Alcohol Comment Caffeine intak e : 2-3 cups pr day [facility] Start: 1960 Sex Assigned At Not on file [facility] Start: 05-13-2022 Gender identity Identifies as female gender (finding) [facility] History of Present illness Narrative 12-01-2023 Brendan Vanessa MD - 12/01/2023 10:00 AM EDT Note Date & Type Note Facility 12-01-2023 History of Presen t illness Narrative Preethi Triana is a 63 y.o. female Brendan Vanessa MD presents with chief complaint of Thyroid Problem and Follow-up HPI: Interim history 11/2023 follow up visit on 12/01/2023 for lab TSH 5.7, FT3 2.8 (2.3-4.1), FT4 1.6 (0.82-1.77), on levothyroxine 275 (200+ 1/2 OF 150) mcg daily. vit d 51, doing 50,000 twice a month Interim history 05/2023 follow up visit on 06/02/2023 for lab TSH 14, FT3 2.6 (2.3-4.1), FT4 1(0.8-1.8), on levothyroxine 250 (200+50) mcg daily. vit d 59 Interim history 10/2022 follow up visit on 11/17/2021 for lab TSH 2.84, FT3 3.7 (2.3-4.1), FT4 1.2(0.8-1.8), on levothyroxine 250 (200+50) mcg daily. Interim history 04/2022 follow up visit on 05/19/2021, LAB IN 04/2022 TSH 0.06, FT3 4.1 (2.3-4.1), FT4 1.45(0.8-1.8), on levothyroxine 300 mcg daily . Interim history 05/20: Followup visit 05/26/2021: follow up visit on 05/26/2021, LAB IN 06/2020 TSH 1.52, FT3 3.24, FT4 1.27 (0.8-1.8), on levothyroxine 300 mcg daily Interim history 06/19: Followup visit 06/13/2020: In July, we increased her dose from 250 to 300 due to TSH 10.78, free T4 of 1.07 (0.6 to 1.6), free T3 of 3.04 (2.5 to 3.9), thyroglobulin less than 0.1, thyroglobulin antibody less than 1, vitamin D 17. She is still on 50,000 once a week. Ultrasound: No residual. No anatomical evidence or biochemical evidence of recurrent disease. NEW LAB IN 01/2021 TSH 173, FT3<1, FT4 0.23 (0.8-1.8), now she takes the meds in am Interim history 02/17: Followup visit 02/06/20: In July, we increased her dose from 250 to 300 due to TSH 10.78, free T4 of 1.07 (0.6 to 1.6), free T3 of 3.04 (2.5 to 3.9), thyroglobulin less than 0.1, thyroglobulin antibody less than 1, vitamin D 17. She is still on 50,000 once a week. Ultrasound: No residual. No anatomical evidence or biochemical evidence of recurrent disease. HPI: 07/2019 New patient sent from Dr. 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 She is currently on levothyroxine 250, 200 plus 50 once daily and they have told her that she is over and needs to cut back the dose, but she wants to follow up. She told me she had 2 cm thyroid cancer at that time and due to goiter they did surgery. Biopsy was benign before and then she got radioactive treatment, does not remember the dose and she has 2 whole body scans after that within normal limits. SUBJECTIVE: MEDICATIONS: Current Outpatient Medications Medication Instructions azelastine (Astelin) 0.1 % nasal spray 1 spray, Each Nostril, 2 times daily, Use in each nostril as directed HYDROcodone-acetaminophen (Sanderson) 5-325 MG tablet 1 tablet, Oral, Every 6 hours PRN hydrOXYzine HCl (Atarax) 10 MG tablet TAKE 1 TO 2 TABLETS BY MOUTH AT BEDTIME NEEDED FOR ITCHING, can TAKE EVERY 8 HOURS, FOR 30 DAYS Iron Carbonyl-Vitamin C-FOS (Chewable Iron) 30-10-25 MG chewable tablet 30 mg, Oral levothyroxine (Synthroid, Levoxyl) 200 MCG tablet 1 tablet, Oral, Daily before breakfast levothyroxine (Synthroid, Levoxyl) 50 MCG tablet 1.5 tablets, Oral, Daily before breakfast, For total 250McG levothyroxine (TIROSINT) 200 mcg, Oral, Every morning, Take on an empty stomach. loratadine (CLARITIN) 10 mg, Oral, Daily RT midodrine (PROAMATINE) 10 mg, Oral, 2 times daily nabumetone (RELAFEN) 750 mg, Oral, 2 times daily omeprazole OTC (PRILOSEC OTC) 20 mg, Oral, Daily before breakfast, Do not crush, chew, or split. ondansetron (ZOFRAN) 4 mg, Oral, Every 8 hours PRN sodium chloride 0.9 % nebulizer solution 3 mL, Nebulization, As needed UNABLE TO FIND 1,600 mg, 2 times daily, Med Name: tumeric valACYclovir (VALTREX) 500 mg, Oral, Daily Vitamin D, Ergocalciferol, 11773 units capsule TAKE ONE CAPSULE BY MOUTH EVERY OTHER WEEK ALLERGIES: Allergies Allergen Reactions Sulfamethoxazole-Trimethoprim Other Reaction(s): GI Disturbance, Unknown Vancomycin Other Reaction(s): Other (See Comments), Red Women Syndrome RED MAN SYNDROME Bupropion Other Reaction(s): anger Wound Dressing Adhesive Rash Fluoxetine Other Reaction(s): felt bug eyed Latex Other Reaction(s): Unknown Sulfa Antibiotics Other Reaction(s): Unknown Tramadol Other Reaction(s): anaphylaxis Venlafaxine Other Reaction(s): nausea Past Medical History: Diagnosis Date Anemia Anxiety state ([facility]) Calculus of gallbladder and bile duct with acute cholecystitis without obstruction Cancer of thyroid (CMS/HCC) Chicken pox Cholecystitis Cholelithiases Chronic fatigue Diffuse cystic mastopathy Diverticulosis 2009 Diverticulosis of colon Dysmenorrhea 2006 Fibromyalgia Gonorrhea Herpes History of hysterectomy History of malignant neoplasm of thyroid History of psychiatric care History of stomach ulcers Hypoglycemia Hypothyroidism, postsurgical (CMS/[facility]) Insomnia w/ sleep apnea Iron deficiency Migraine headache ([facility]/HCC) Moderate major depression (CMS/HCC) Morbid obesity (CMS/HCC) Obesity BON (obstructive sleep apnea) Postsurgical hypothyroidism (CMS/HCC) Urethral stricture 1998 Vaginal infection Venous insufficiency peripheral Vitamin D deficiency Past Surgical History: Procedure Laterality Date APPENDECTOMY 2006 CHOLECYSTECTOMY 02/07/2018 COLONOSCOPY ESOPHAGOGASTRODUODENOSCOPY 06/24/2023 IR JOINT ASPIRATION Left left knee OTHER SURGICAL HISTORY 2009 medication OTHER SURGICAL HISTORY 09/2016 Albation of left leg OTHER SURGICAL HISTORY Bilateral 09/2020 Microphelbectomy 30 tabs sites on left 15 on right OTHER SURGICAL HISTORY 2020 maligant melanoma , [facility] THYROIDECTOMY 2012 TOTAL ABDOMINAL HYSTERECTOMY W/ BILATERAL SALPINGOOPHORECTOMY 2005 dysmenorrhea TOTAL ABDOMINAL HYSTERECTOMY W/ BILATERAL SALPINGOOPHORECTOMY 2005 URETERAL STENT PLACEMENT 1999 VEIN SURGERY 05/16/2020 REVIEW OF SYMPTOMS: 14 POINT OF SYSTEM REVIEWED AND NEGATIVE OBJECTIVE: Visit Vitals BP 128/82 Pulse 78 Resp 18 Ht 5' 8 Wt 236 lb BMI 35.88 kg/m OB Status Hysterectomy Smoking Status Never BSA 2.27 m Physical Exam Constitutional: Appearance: Normal appearance. She is normal weight. HENT: Head: Normocephalic and atraumatic. Right Ear: External ear normal. Nose: Nose normal. Mouth/Throat: Pharynx: Oropharynx is clear. Eyes: Extraocular Movements: Extraocular movements intact. Pupils: Pupils are equal, round, and reactive to light. Cardiovascular: Rate and Rhythm: Normal rate and regular rhythm. Pulmonary: Effort: Pulmonary effort is normal. Abdominal: General: Abdomen is flat. Palpations: Abdomen is soft. Musculoskeletal: General: Normal range of motion. Skin: General: Skin is warm. Neurological: General: No focal deficit present. Mental Status: She is alert. Psychiatric: Mood and Affect: Mood normal. Behavior: Behavior normal. ASSESSMENT AND PLAN: Assessment/Plan Diagnoses and all orders for this visit: Postoperative hypothyroidism (CMS/[facility]) - T3, free; Future - T4, free; Future - TSH; Future - Vitamin D 1,25 dihydroxy; Future We will continue with levothyroxine 275 once daily, we will check lab before next visit in 1 year and adjust accordingly, currently she take 1 tablet of 200 and half tablets of 150 History of thyroid cancer Class 2 obesity without serious comorbidity with body mass index (BMI) of 35.0 to 35.9 in adult, unspecified obesity type Encounter for dietary consultation Vitamin D deficiency Level 51 in October/2023 we will continue with 50,000 twice a month Follow up in about 1 year (around 11/30/2024). documented in this encounter [facility] History of Present illness Narrative 04-08-2023 Castro Bernstein MD - 04/08/2023 10:30 AM EST Note Date & Type Note Facility 04-08-2023 History of Presen t illness Narrative Patient ID: Preethi Triana is a 62 y.o. female who presents [...] 500 mg, Oral, Daily Vitamin D, Ergocalciferol, 94576 units capsule TAKE ONE CAPSULE BY MOUTH [...] the adjustment in their medication. Morbid obesity (CMS/[facility]) BMI 36.0-36.9,adult documented in this encounter [facility] Evaluation note 04-13-2022 Note Date & [...] or concern Apr, Bronchitis (ICD-10 - J40) [facility] Other Evaluation note 05-18-2021 Note Date & [...] left hand, initial encounter (ICD-10 - S63.92XA) [facility] Other Evaluation note 12-21-2020 Note Date & [...] understanding and is agreeable to treatment plan [facility] Other Evaluation note Note Date & Type Note Facility Evaluation note No assessment information [facility] Work Phone: Evaluation note Note Date & Type Note Facility Evaluation note Diagnosis Pneumonia of left lower lobe due to infectious organism Morbid obesity (CMS/HCC) Morbid obesity BMI 36.0-36.9,adult documented in this encounter [facility] Evaluation note Note Date & Type Note Facility Evaluation note Diagnosis Postoperative hypothyroidism (CMS/HCC)- Primary Postsurgical hypothyroidism History of thyroid cancer Personal history of malignant neoplasm of thyroid Class 2 obesity without serious comorbidity with body mass index (BMI) of 35.0 to 35.9 in adult, unspecified obesity type Encounter for dietary consultation Vitamin D deficiency documented in this encounter [facility] Evaluation note Note Date & Type Note Facility Evaluation note Diagnosis Marita's disease (CMS/HCC)- Primary Chronic lymphocytic thyroiditis documented in this encounter [facility] History general Narrative - Reported Note [...] Hospitalization History SEE ABOVE Hospitalization History pgeisert [facility] Other Summary Purpose Family History Relationship Condition Age at Onset Recorded Date/T [...] disorder Unknown sister Hyperthyroidism Unknown Advance Directives Advance Directive Response Recorded Date/ Time Advance Directives No October 08, 2017 3:57pm Chief Complaint and Reason for Visit Chief Complaint CONTUSION BUTTOCKS Additional Source Comments INFORMATION SOURCE (unrecogn ized section and content) DATE CREATED AUTHOR 08/01/2019 [facility] DATE CREATED AUTHOR AUTHOR'S ORGANIZ ATION 12/28/2021 [facility] DATE CREATED AUTHOR AUTHOR'S ORGANIZ ATION 12/21/2022 [facility] DATE CREATED AUTHOR AUTHOR'S ORGANIZ ATION 06/26/2023 [facility] DATE CREATED AUTHOR AUTHOR'S ORGANIZ ATION 12/03/2023 [facility] EPIC REASON FOR VISIT (unrecogniz ed section and content) Reason Comments URI Reason Comments Thyroid Problem Follow-up Reason Comments Med Refill Care Teams (unrecognized sec tion and content) Team Status: Active Member Role Status Dates Physician None Primary Care Provider Active Team Status: Inactive Member Role Status Dates Physician None Primary Care Provider Active Rene lAlred PA-C Attending Provider Active Outside Laborer Relationship Specialty Start Date End Date Castro Bernstein MD [address] [place] [phone] PCP - General Family Medicine 08/04/22 Outside Laborer Relationship Specialty Start Date End Date Castro Bernstein MD [address] [place] [address] PCP - General Family Medicine 08/04/22 Team Status: Inactive Member Role Status Dates Rolf Redding DO Attending Provider Active Start : June 24, 2023 End: June 24, 2023 Outside Laborer Relationship Specialty Start Date End Date Castro Bernstein MD [address] [place] [phone] PCP - General Family Medicine 08/04/22 Outside Laborer Relationship Specialty Start Date End Date Castro Bernstein MD [address] [place] [phone] PCP - [facility] 08/04/22 Outside Laborer Relationship Specialty Start Date End Date Castro Bernstein MD [address] [place] [address] PCP - [facility] Family [facility] 08/04/22 Goals (unrecognized section and content) Goals may [...] BE BASED ON THE PRIMARY CLINICAL RECORDS. [employer] provides no warranty or guarantee of the accuracy or completeness of information in this document.
== END 2024-03-03 08:23 | disposition home or self-care (01) ==
LOC: MAMMO 08:23
PROVIDERS: PCP Family Medicine; Visit Provider Family Medicine
DX: Z12.31 Encounter for screening mammogram for malignant neoplasm of breast (principal); Z80.41 Family history of malignant neoplasm of ovary
CPT/HCPCS: 77063; 77067